=== PATIENT | male | born 1930 | race Caucasian/White ===

== ENCOUNTER 2018-07-08 09:24 | Inpatient (IN) | payer MEDICARE, OTHER ==
[2018-07-10] MEDS ORDERED: Gabapentin 100 MG Cap PO PRN (16:20)
[2018-07-10] MEDS: Acetaminophen 325 MG Tab PO SCH ×2 (16:48→21:49)
--- NOTE | 2018-07-10 18:15 | PCM.HP ---
H&P History of Present Illness - General Date of Service: 07/10/18 Admit Problem/Dx: Admission Diagnosis/Problem Admission Diagnosis/Problem Weakness Source of Information: Patient, Family History Limitations: Reports: No Limitations - History of Present Illness Initial Comments - Free Text/Narative: Mr. Rosales is an 88 yo male with PMH of aortic stenosis, CKD, atrial fibrillation , dyspnea on exertion, and hypertension who is admitted to swing bed for short term rehabilitation following a right total shoulder replacement. He underwent the surgery in [place] on 07/05. The surgery was uncomplicated and he did well postoperatively. He has chronic shortness of breath on exertion. However, he had noted this was slightly worse after surgery; therefore, an extensive evaluation was obtained. It seems the shortness of breath is likely secondary to slight fluid overload as other testing did not give alternative explanations and his symptoms improved with a dose of lasix. He is s/p left AKA. Therefore, it was recommended he do rehab in a facility for a short time before returning home. He and his family note that he has already been making great strides in his ADL' s just in the last 3-4 days even. He has not had any pain and is only on tylenol for his shoulder. He does have some swelling in the right arm that has been persistent since surgery but denies any redness or pain. No problems with ROM or sensation of the fingers. His appetite is good and he denies any nausea or vomiting. He is having regular bowel movements. He states his shortness of breath remains at baseline. He has not had any chest pain, leg swelling, cough, or fever. He denies any questions or concerns. - Related Data Allergies/Adverse Reactions: Allergies Allergy/AdvReac Type Severity Reaction Status Date / Time codeine Allergy Other Verified 07/08/18 09:07 oxycodone Allergy Other Verified 07/08/18 09:07 Home Medications: Home Meds Acetaminophen 650 mg PO Q6H 07/08/18 [History] Aspirin [Aspirin EC] 325 mg PO DAILY 07/08/18 [History] Labetalol [Normodyne] 100 mg PO BID 07/08/18 [History] Losartan [Cozaar] 50 mg PO DAILY 07/08/18 [History] Sennosides/Docusate Sodium [Senna-Docusate Sodium Tablet] 1 each PO BID [History] amLODIPine Besylate [Amlodipine Besylate] 10 mg PO DAILY 07/08/18 [History] hydroCHLOROthiazide [Hydrochlorothiazide] 25 mg PO DAILY 07/08/18 [History] Cyanocobalamin (Vitamin B-12) [B-12] 1,000 mcg PO DAILY 07/10/18 [History] Ferrous Sulfate 325 mg PO TID 07/10/18 [History] Folic Acid 1 mg PO DAILY 07/10/18 [History] Gabapentin [Neurontin] 100 mg PO BID PRN 07/10/18 [History] Magnesium Amino Acid Chelate [Magnesium] 100 mg PO DAILY 07/10/18 [History] Multivitamin [Multi-Vitamin Daily] 1 each PO DAILY 07/10/18 [History] Past Medical History HEENT History: Reports: Cataract, Other (See Below) Other HEENT History: coroneal scar; blurred vision Cardiovascular History: Reports: Afib, Hypertension, Other (See Below) Other Cardiovascular History: aortic valve stenosis Respiratory History: Reports: Other (See Below) Other Respiratory History: SOB on exertion Gastrointestinal History: Reports: None Genitourinary History: Reports: Other (See Below) Other Genitourinary History: kidney disease Musculoskeletal History: Reports: Amputation, Other (See Below) Other Musculoskeletal History: tramatic left above the knee amputation; trigger finger; cervical spondylosis Neurological History: Reports: None Psychiatric History: Reports: None Endocrine/Metabolic History: Reports: None Hematologic History: Reports: Anemia, Other (See Below) Other Hematologic History: agranulocytosis Immunologic History: Reports: None Oncologic (Cancer) History: Reports: Other (See Below) (skin) Dermatologic History: Reports: Other (See Below) Other Dermatologic History: actinic keratosis - Infectious Disease History Infectious Disease History: Reports: Other (See Below) Other Infectious Disease History: hx of coccidiodomycosis - Past Surgical History HEENT Surgical History: Reports: Cataract Surgery, Eye Surgery Respiratory Surgical History: Reports: Other (See Below) Other Respiratory Surgeries/Procedures: 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 GI Surgical History: Reports: Appendectomy, Hernia Repair/Other Musculoskeletal Surgical History: Reports: Carpal Tunnel, ORIF, Shoulder Replacement Social & Family History - Family History Oncologic: Reports: Other (See Below) (unknown primary) - Tobacco Use Smoking Status *Q: Former Smoker Packs/Tins Daily: 1 Used Tobacco, but Quit: Yes Month/Year Tobacco Last Used: 1969 Second Hand Smoke Exposure: No - Caffeine Use Caffeine Use: Reports: Coffee, Soda - Alcohol Use Days Per Week of Alcohol Use: 3 Number of Drinks Per Day: 2 Total Drinks Per Week: 6 - Recreational Drug Use Recreational Drug Use: No - Living Situation & Occupation Living situation: Reports: with Significant Other Occupation: Retired (army , retired salesman) H&P Review of Systems - Review of Systems: Review Of Systems: See Below General: Reports: No Symptoms HEENT: Reports: No Symptoms Pulmonary: Reports: No Symptoms Cardiovascular: Reports: No Symptoms Gastrointestinal: Reports: No Symptoms Genitourinary: Reports: No Symptoms Musculoskeletal: Reports: No Symptoms Skin: Reports: No Symptoms Psychiatric: Reports: No Symptoms Exam - Exam Exam: See Below - Vital Signs Vital Signs: Last Vital Signs Temp 36.6 C 07/10/18 14:04 Pulse 91 07/10/18 14:04 Resp 16 07/10/18 14:04 BP 152/76 H 07/10/18 14:04 Pulse Ox 98 07/10/18 14:04 Weight: 72.745 kg - Exam General: Alert, Oriented, Cooperative HEENT: Conjunctiva Clear, Posterior Pharynx Clear, Pupils Equal, Pupils Reactive Neck: Supple, Trachea Midline. No: Lymphadenopathy, Thyromegaly Lungs: Clear to Auscultation, Normal Respiratory Effort Cardiovascular: Regular Rate, Regular Rhythm, Normal S1, Normal S2 GI/Abdominal Exam: Normal Bowel Sounds, Soft, Non-Tender, No Distention Extremities: Non-Tender, No Pedal Edema, Normal Capillary Refill, Other ( generalized pitting edema to the right upper extremity that is nontender to palpation; no erythema; ROM and sensation of the fingers and arm normal) Peripheral Pulses: 2+: Radial (L), Radial (R) Skin: Warm, Dry, Intact *Q Meaningful Use (ADM) - VTE *Q VTE Anticoagulation Contraindications: Med/TX Not Indicated/Need - Problem List (1) Status post total replacement of right shoulder SNOMED Code(s): 246490072, 516991828 ICD Code: Z96.611 - PRESENCE OF RIGHT ARTIFICIAL SHOULDER JOINT Status: Acute Current Visit: Yes (2) S/P AKA (above knee amputation) SNOMED Code(s): 121499327, 95438804, 884320878 ICD Code: Z89.619 - ACQUIRED ABSENCE OF UNSPECIFIED LEG ABOVE KNEE Status: Chronic Current Visit: Yes Qualifiers: Laterality: left Qualified Code(s): Z89.612 - Acquired absence of left leg above knee (3) Dyspnea on exertion SNOMED Code(s): 64972432 ICD Code: R06.09 - OTHER FORMS OF DYSPNEA Status: Chronic Current Visit: Yes (4) Phantom limb pain SNOMED Code(s): 9451473053008 ICD Code: G54.6 - PHANTOM LIMB SYNDROME WITH PAIN Status: Chronic Current Visit: Yes (5) Hypertension SNOMED Code(s): 09551427 ICD Code: I10 - ESSENTIAL (PRIMARY) HYPERTENSION Status: Chronic Current Visit: Yes Qualifiers: Hypertension type: essential hypertension Qualified Code(s): I10 - Essential (primary) hypertension (6) CKD (chronic kidney disease) SNOMED Code(s): 357573911 ICD Code: N18.9 - CHRONIC KIDNEY DISEASE, UNSPECIFIED Status: Chronic Current Visit: Yes Qualifiers: Chronic kidney disease stage: stage 3 (moderate) Qualified Code(s): N18.3 - Chronic kidney disease, stage 3 (moderate) (7) Aortic stenosis SNOMED Code(s): 65625450 ICD Code: I35.0 - NONRHEUMATIC AORTIC (VALVE) STENOSIS Status: Chronic Current Visit: Yes Qualifiers: Cardiac valve disease etiology: nonrheumatic Qualified Code(s): I35.0 - Nonrheumatic aortic (valve) stenosis (8) Atrial fibrillation SNOMED Code(s): 99859021 ICD Code: I48.91 - UNSPECIFIED ATRIAL FIBRILLATION Status: Chronic Current Visit: Yes Qualifiers: Atrial fibrillation type: paroxysmal Qualified Code(s): I48.0 - Paroxysmal atrial fibrillation Problem List Initiated/Reviewed/Updated: Yes Orders Last 24hrs: Active Orders 24 hr Category Date Time Status Admission Status [Patient Status] [ADT] Routine ADT 07/10/18 13:00 Active Notify Provider Vital Signs [RC] 06,18 Care 07/10/18 16:19 Active Oxygen Therapy [RC] .PRN Care 07/10/18 16:19 Active Up With Assistance [RC] 08,20 Care 07/10/18 16:19 Active Vital Signs [RC] 06,18 Care 07/10/18 16:19 Active OT Evaluation and Treatment [CONS] Routine Cons 07/10/18 13:00 Active PT Evaluation and Treatment [CONS] Routine Cons 07/10/18 13:00 Active Regular Diet [DIET] Diet 07/10/18 Lunch Active Acetaminophen [Tylenol] Med 07/10/18 16:30 Active 650 mg PO Q6H Aspirin [Ecotrin] Med 07/11/18 08:00 Active 325 mg PO DAILY Cyanocobalamin (Vitamin B12) [Vitamin B12] Med 07/11/18 08:00 Active 1,000 mcg PO DAILY Docusate Sodium/Sennosides [Senna Plus] Med 07/10/18 20:00 Active 1 tab PO BID Ferrous Sulfate Med 07/10/18 20:00 Active 325 mg PO TID Folic Acid Med 07/11/18 08:00 Active 1 mg PO DAILY Gabapentin [Neurontin] Med 07/10/18 16:20 Active 100 mg PO BID PRN Labetalol [Normodyne] Med 07/10/18 20:00 Active 100 mg PO BID Losartan [Cozaar] Med 07/11/18 08:00 Active 50 mg PO DAILY Magnesium Oxide Med 07/11/18 08:00 Active 400 mg PO DAILY Multivitamins w-Iron/Ca/FA/Min [Thera M Plus] Med 07/11/18 08:00 Active 1 tab PO DAILY amLODIPine [Norvasc] Med 07/11/18 08:00 Active 10 mg PO DAILY hydroCHLOROthiazide Med 07/11/18 08:00 Active 25 mg PO DAILY Anticoagulation Contraindications VTE [AST] Routine Oth 07/10/18 16:19 Ordered Resuscitation Status Routine Resus Stat 07/10/18 16:19 Ordered Medication Orders Acetaminophen (Tylenol) 650 mg PO Q6H [facility] Last Admin: 07/10/18 16:48 Dose: 650 mg Amlodipine Besylate (Norvasc) 10 mg PO DAILY [facility] Aspirin (Ecotrin) 325 mg PO DAILY [facility] Cyanocobalamin (Vitamin B12) 1,000 mcg PO DAILY [facility] Ferrous Sulfate (Ferrous Sulfate) 325 mg PO TID [facility] Folic Acid (Folic Acid) 1 mg PO DAILY [facility] Gabapentin (Neurontin) 100 mg PO BID PRN PRN Reason: Phantom limb pain Hydrochlorothiazide (Hydrochlorothiazide) 25 mg PO DAILY [facility] Labetalol HCl (Normodyne) 100 mg PO BID [facility] Losartan Potassium (Cozaar) 50 mg PO DAILY [facility] Magnesium Oxide (Magnesium Oxide) 400 mg PO DAILY [facility] Multivitamins/Minerals (Thera M Plus) 1 tab PO DAILY [facility] Senna/Docusate Sodium (Senna Plus) 1 tab PO BID [facility] Assessment/Plan Comment:: #1 s/p right total shoulder replacement #2 s/p left AKA - Patient is doing extremely well postoperatively. - PT/OT consults for strengthening. - Anticipate his swing bed stay will be very short but this will be guided by PT and OT recommendations. - Continue tylenol for pain and ASA for VTE prophylaxis. 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 He had a good response to a single dose of lasix and has done well since. - Do recommend further work-up with PFT's and possibly stress testing as an outpatient given chronic nature of symptoms. #4 Phantom limb pain - Continue gabapentin PRN. #5 Hypertension #6 CKD #7 Aortic stenosis - Continue home medications. #8 Atrial fibrillation - He has declined anticoagulation in the past. - Immediately postop is not the time to start this. - Will defer to his [facility] providers regarding this. Patient is admitted to swing bed for rehabilitation - anticipate he will only be admitted for up to 1-2 weeks. Continue medications as per his hospital d/c list. ASA for VTE prophylaxis as per current orthopedic guidelines; nothing else needed for VTE prophylaxis. Code status is Full - discussed on admission.
[2018-07-10] MEDS: Ferrous Sulfate 325 MG Tab PO SCH (20:38)
[2018-07-10] MEDS: Labetalol 100 MG Tab PO SCH (20:41)
[2018-07-10] MEDS: amLODIPine 10 MG Tab PO SCH (21:48)
[2018-07-11] MEDS: Acetaminophen 325 MG Tab PO SCH ×4 (05:11→23:49)
--- OUTSIDE RECORDS SUMMARY | 2018-07-11 07:42 | XMSREPORT | Summary of Care ---
:1930 Author Organization [facility] Address [address] [place] [address] Care Team Providers Name Role Phone Provider, No Attributed RESOURCE Attributed Provider Unavailable Jaron Silva Primary Care Provider Reason for Visit Auth/Cert (Routine) Status Reason Specialty Diagnoses / Procedures Referred By Contact Referred To Contact Diagnoses Primary osteoarthritis, unspecified shoulder Mateo Cartwright, Procedures ARTHROPLASTY GLENOHUMERAL JOINT TOTAL SHLDR [address] [place] [address] Encounter Details Date Type Department Care Team Description 07/05/2018 - Hospital Encounter [facility], Status post total 07/10/2018 [facility] MS4C MD Mateo shoulder [facility] [address] replacement, [place] [address] [place], [place] [phone] [id number] [phone] Allergies Active Allergy Reactions Severity Noted Date Comments Codeine Nausea and Vomiting 06/27/2018 Oxycodone Nausea and Vomiting 06/27/2018 Analgesic Nausea and Vomiting 07/11/2014 Allergic to all pain killers documented as of this encounter (statuses as of 07/10/2018) Medications Medication Sig Dispensed Refills Start End Status Date Date acetaminophen (TYLENOL) Take 2 tablets 112 tablet 0 07/11/19 Active 325 mg (650 mg) by 19 019 tabletIndications: mouth Every 6 Healthcare maintenance hours for 14 days aspirin 325 MG enteric Take 1 tablet 30 tablet 0 07/11/19 Active coated (325 mg) by 19 tabletIndications: mouth 1 time Healthcare maintenance per day gabapentin (NEURONTIN) Take 1 capsule 60 capsule 2 07/11/19 Active 100 mg (100 mg) by 19 019 capsuleIndications: mouth 2 times a Phantom limb pain (HCC) day as needed for other (Specify) (phantom limb) niacin SR (NIASPAN) 500 Take 1 tablet 0 07/11/19 Active MG tabletIndications: (500 mg) by 19 Healthcare maintenance mouth 1 time per day at noon HOLD UNTIL SURGICAL WOUND HEALS. senna-docusate sodium Take 1 tablet 0 07/11/19 Active (SENOKOT-S;PERICOLACE) by mouth 2 19 8.6-50 MG times a day tabletIndications: Healthcare maintenance Coenzyme Q10 (CO Q 10) Take 1 tablet 0 07/11/19 Active 10 MG CAPSIndications: by mouth 1 time 19 Healthcare maintenance per day HOLD UNTIL SURGICAL WOUND HEALS. Nattokinase 100 MG Take 250 mg by 0 07/11/19 Active CAPSIndications: mouth 1 time 19 Healthcare maintenance per day HOLD UNTIL SURGICAL WOUND HEALS. turmeric 500 mg Take 0.5 0 07/11/19 Active tabletIndications: tablets (250 19 Healthcare maintenance mg) by mouth 1 time per day HOLD UNTIL SURGICAL WOUND HEALS. vitamin E 100 units Take 1 capsule 30 capsule 0 07/11/19 Active capsuleIndications: (100 Units) by 19 Healthcare maintenance mouth 1 time per day HOLD UNTIL SURGICAL WOUND HEALS. losartan 50 mg tablet Take by mouth 1 0 07/11/19 Active time per day 19 labetalol (NORMODYNE, Take 0.5 0 07/11/19 Active TRANDATE) 200 mg tablet tablets (100 19 mg) by mouth 2 times a day amLODIPine (NORVASC) 10 Take 1 tablet 0 07/11/19 Active mg tablet (10 mg) by 19 mouth 1 time per day hydroCHLOROthiazide 25 Take by mouth 1 0 20 Active mg tablet time per day 19 Ferrous Sulfate (IRON) Take 1 tablet 30 tablet 0 07/11/19 Active 325 (65 Fe) MG tablet (325 mg) by 19 mouth 3 times a day folic acid 1 mg tablet Take 1 tablet 90 tablet 3 07/11/19 Active (1 mg) by mouth 19 1 time per day magnesium 100 MG CAPS Take 1 capsule 0 07/11/19 Active by mouth 1 time 19 per day B Complex Vitamins (B Take 1 tablet 0 05/06/20 Active COMPLEX-VITAMIN B-12) by mouth 1 time 19 TABSIndications: per day Healthcare maintenance Multiple Take 1 tablet 30 tablet 0 07/11/19 Active Vitamins-Minerals (1 each) by 19 (MULTIVITAL) mouth 1 time tabletIndications: per day Healthcare maintenance hydrochlorothiazide 25 Take by mouth 0 Discontinued mg tablet 1 time per day. 019 amLODIPine (NORVASC) 10 Take 10 mg by 0 Discontinued mg tablet mouth 1 time 019 per day. losartan (COZAAR) 50 mg Take by mouth 0 Discontinued tablet 1 time per day. 019 B Complex Vitamins (B Take 1 tablet 0 Discontinued COMPLEX-VITAMIN B-12) by mouth 1 time 019 TABS per day Coenzyme Q10 (CO Q 10) Take 1 tablet 0 Discontinued 10 MG CAPS by mouth 1 time 019 per day niacin 100 mg tablet Take 100 mg by 0 Discontinued mouth 1 time 019 per day pyridoxine (VITAMIN Take 100 mg by 0 Discontinued B-6) 100 MG tablet mouth 1 time 019 per day. UNKNOWN NDC mattokanize 0 Discontinued 019 metoprolol succinate Take 100 mg by 0 Discontinued (TOPROL XL) 100 mg SR mouth 1 time 019 tablet (24 hr) per day magnesium 100 MG CAPS Take 1 capsule 0 Discontinued by mouth 1 time 019 per day labetalol (NORMODYNE, Take 100 mg by 0 Discontinued TRANDATE) 200 mg tablet mouth 2 times a 019 day ibuprofen Take 600 mg by 0 Discontinued (ADVIL;MOTRIN-IB) 200 mouth Every 4 019 mg tablet hours as needed vitamin E 100 units Take 1 capsule 0 Discontinued capsule by mouth 1 time 019 per day NATTOKINASE PO Take 250 mg by 0 Discontinued mouth 1 time 019 per day Ferrous Sulfate (IRON) Take 325 mg by 0 Discontinued 325 (65 Fe) MG tablet mouth 3 times a 019 day Multiple Take 1 tablet 0 Discontinued Vitamins-Minerals by mouth 1 time 019 (MULTIVITAL) tablet per day diclofenac (VOLTAREN) Apply 4 g 0 Discontinued 1% gel topically 4 019 times a day folic acid 1 mg tablet Take 1 mg by 0 Discontinued mouth 1 time 019 per day niacin SR (NIASPAN) 500 Take 500 mg by 0 Discontinued MG tablet mouth 1 time 019 per day at noon turmeric 500 mg tablet Take 250 mg by 0 Discontinued mouth 1 time 019 per day documented as of this encounter (statuses as of 07/10/2018) Active Problems Problem Noted Date Acute blood loss anemia 07/10/2018 Phantom limb pain 07/10/2018 Shortness of breath 07/10/2018 Hyperkalemia 07/10/2018 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 documented as of this encounter Last Filed Vital Signs Vital Sign Reading Time Taken Blood Pressure 117/85 07/10/2018 8:42 AM CDT Pulse 104 07/10/2018 8:42 AM CDT Temperature 36.8 C (98.2 F) 07/10/2018 8:42 AM CDT Respiratory Rate 16 07/10/2018 8:42 AM CDT Oxygen Saturation 97% 07/10/2018 8:42 AM CDT Inhaled Oxygen Concentration - - Weight 73 kg (161 lb) 07/09/2018 10:14 AM CDT Height 162.6 cm (5' 4") 07/05/2018 7:15 AM CDT Body Mass Index 27.64 07/09/2018 10:14 AM CDT documented in this encounter Functional Status Functional Status Response Date of Assessment Is the person deaf or does he/she have serious difficulty No 06/27/2018 hearing? Is this person blind or does he/she have difficulty No 06/27/2018 seeing even when wearing glasses? Do you have difficulty with walking, balance, climbing No 06/27/2018 stairs, or had a fall in the last 3 months? Does the patient have difficulty dressing or bathing? No 06/27/2018 Because of a physical, mental, or emotional condition; No 06/27/2018 does this person have difficulty doing errands alone such as visiting a doctor's office or shopping? Cognitive Status Response Date of Assessment Because of a physical, mental, or emotional condition; No 06/27/2018 does this person have serious difficulty concentrating, remembering, or making decisions? documented as of this encounter Discharge Instructions Domingo Sanchez RN - 07/10/2018Reviewed "Orthopedic Discharge Education Guidelines" and "Pain management after You are Discharged" documents with patient. Paper copies were attached to AVS for patient to use as a reference for follow up questions. Preventing Blood Clots (Deep Vein Thrombosis) In the days and weeks after surgery, you have a higher chance of developing a deep vein thrombosis (DVT). This is a condition in which a blood clot or thrombus develops in a deep vein. They are most common in the leg. But, a DVT may develop in an arm, or another deep vein in the body. A piece of the clot, called an embolus, can separate from the vein and travel to the lungs. A blood clot in the lungsis called a pulmonary embolus (PE). This can cut off the flow of blood. It is a medical emergency and may cause . Deep vein thrombosis can occur even after you go home. Follow all instructions from your health careprovider. The following are some general guidelines about DVT prevention: Anticoagulant medication. If an anticoagulant was prescribed, make sure you follow all directionsabout taking it. Be sure you know what foods and medicines may interact. Also, ask your health care provider what to do if you forget to take a dose. Compression stockings. Your health care provider will tell you how often to wear and remove the stockings. Follow all instructions closely. Each time you remove your stockings, check your legs and feet for reddened areas or sores. If you see any changes, call your health care provider right away. Returning to activity. Follow all instructions about returning to activities. Be as active as youcan. This improves blood flow and helps prevent a clot from forming. When in bed or in a chair, continue with the ankle exercises you did in the hospital. Elevate your extremity above the level of yourheart to help prevent swelling. documented in this encounter Progress Notes Merced Hinojosa MD - 07/09/2018 10:38 AM CDT DAILY PROGRESS NOTE SUMMARY 88-year-old gentleman admitted to the hospital for right total shoulder arthroplasty. He underwent the procedure on 07/05. Internal medicine is following the patient for medical management. ASSESSMENT & PLAN #. Right total shoulder arthroplasty. Pain control, bowel regimen, DVT prophylaxis per orthopedics. - On scheduled Tylenol for pain control. Per family, patient is sensitive to tramadol and oxycodone. He is unable to use Celebrex because of his chronic kidney disease. On MiraLAX and senna. On aspirin for DVT prophylaxis. #. Shortness of breath. Likely from fluid overload. Baseline weight (with prosthesis) 160 lb. current weight 161 lb. - Patient reports shortness of breath is better this morning. No hypoxia. SBP 150-160. Patient mildly tachycardic. - Administer another dose of IV Bumex. Check renal panel in a.m. - Hydrochlorothiazide and/or Bumex decision pending shortness of breath, dizziness, blood pressure, orthostatic blood pressure, and renal panel in a.m. - Shortness of breath workup done on 07/08. Please refer to note from 07/08 for further details. #. Hypertension. On Norvasc and labetalol. HCTZ and losartan on hold. #. History of paroxysmal atrial fibrillation. On labetalol. Not on anticoagulation or aspirin. Follow-up with PCP. #. Staged 3 chronic kidney disease. Baseline creatinine appears to be around 1.6. #. Moderate aortic stenosis. #. History of left AKA. #. Phantom limb pain. Started on Neurontin. Appears to be helping. Patient would like to keep this as needed. #. Anemia. Hemoglobin stable around 9. Disposition: To TCU on Tuesday. >35 min spent on patient care. >50% of time spent on patient/family counseling and coordination of care. This note was created, at least in part, with the use of [employer] Dictation System. Inadvertenttypographical errors, due to software recognition problems, may still exist. SUBJECTIVE/ROS No acute events overnight. No new complaints this a.m. Patient is sitting in chair and appears comfortable. No chest pain. Shortness of breath improving. No abdomen pain. No specific complaints. Medications bumetanide (BUMEX) injection solution 1 mg 1 mg IV Daily 1 mg at 07/09/18 1006 gabapentin (NEURONTIN) capsule 100 mg 100 mg Oral 2 times a day 100 mg at 07/09/18 1013 levalbuterol (XOPENEX) 0.63 MG/3ML inhalation soln 0.63 mg 0.63 mg Nebulization Every 4 hours prn amLODIPine (NORVASC) tablet 10 mg 10 mg Oral daily 10 mg at 07/08/182013 labetalol (NORMODYNE, TRANDATE) tablet 100 mg 100 mg Oral 2 times a day 100 mg at 07/09/18 1014 aspirin (ECOTRIN) enteric coated tablet 325 mg 325 mg Oral Daily 325 mg at 07/09/18 1014 sodium chloride 0.9% flush (adult) 10 mL 10 mL IV 2 times a day and prn 10 mL at 07/09/18 1012 acetaminophen (TYLENOL) tablet 650 mg 650 mg Oral Every 6 hours 650 mg at 07/09/18 0608 senna-docusate sodium (SENOKOT-S;PERICOLACE) tablet 1 tablet 1 tablet Oral 2 times a day 1 tablet at 07/07/182002 polyethylene glycol (MIRALAX) packet 1 packet 1 packet Oral Daily 1 packet at 07/07/18 0955 magnesium hydroxide (MILK OF MAGNESIA) oral suspension 30 mL 30 mL Oral 2 times a day prn bisacodyl (DULCOLAX) enteric coated tablet 5 mg 5 mg Oral 2 times a day prn 5 mg at 07/07/182002 bisacodyl (DULCOLAX) suppository 10 mg 10 mg Rectal 1 time a day prn ondansetron (ZOFRAN) injection solution 4 mg 4 mg IV Every 4 hours prn 4 mg at 07/06/18 0926 benzocaine-menthol (CEPACOL w/ BENZOCAINE) lozenge 1 lozenge 1 lozenge Mouth/Throat Every 4 hours prn niacin (SLO-NIACIN) CR tablet 500 mg 500 mg Oral Daily at noon 500 mg at 1315 OBJECTIVE Current Vital Signs Temp: 98.1 F (36.7 C) BP: 155/80 Pulse: 82 O2 Device: Room Air O2 Flow Rate (L/min): 2 l/min Resp: 16 Pain Ratin (out of 10) Weight: 71.8 kg (158 lb 4.6 oz) SpO2: 98 % Vitals Min/Max Last 24 Hours Vital Signs Min/Max (last 24 hours) Flowsheet Row Name Min Max Temp 97.9 F (36.6 C) 98.3 F (36.8 C) BP: Systolic 140 163 BP: Diastolic 80 88 Pulse 81 92 Resp 16 18 SpO2 97 % 98 % MAP (mm Hg) 104 mm Hg 125 mm Hg Intake and Output Last 24 Hours 07/08 0700 - 07/09 0659 In: 400 Out: 1425 Lines and Drains Patient Lines/Drains/Airways Status Active Lines Name: Placement date: Placement time: Site: Days: Peripheral IV 07/05/18 Forearm Left 07/05/18 075 Forearm 4 Incision 07/05/18 Right Shoulder Incision 07/05/18 Shoulder 4 Physical Exam General Appearance: Well nourished, well hydrated, does not appear to be in acute distress Lungs: No use of accessory muscles of respiration, CTA shiva Heart: normal S1 S2, no pedal edema. Abdomen: soft, normal BS, non tender Neurological: alert, answering questions appropriately. Diagnostics and Labs Labs (Last day) 07/09/18542 - 07/09/18542 CBC 07/09/18542 CBC WBC 4.0-11.0 (K/uL) 5.4 RBC 4.40-5.80 (M/uL) 2.98 Hemoglobin 13.5-17.5 (g/dL) 9.1 Hematocrit 40.0-50.0 (%) 27.9 MCV 80.0-98.0 (fL) 93.6 MCH 25.5-34.0 (pg) 30.5 MCHC 31.5-36.5 (g/dL) 32.6 RDW-CV 11.5-15.5 (%) 12.9 RDW-SD 35.5-50.0 (fl) 42.8 Platelet Count 140-400 (K/uL) 180 MPV 8.5-12.0 (fL) 10.3 07/09/1843 - 07/09/18542 CHEMISTRY 07/09/18542 CHEMISTRY Glucose 70-100 (mg/dL) 93 Sodium 135-145 (meq/L) 140 Potassium 3.5-5.3 (meq/L) 4.6 Chloride 99-110 (meq/L) 106 CO2 20-29 (meq/L) 25 Anion Gap with K 6-20 (meq/L) 14 BUN 6-22 (mg/dL) 29 Creatinine 0.80-1.30 (mg/dL) 1.45 BUN/Creatinine Ratio 10.0-25.0 20.0 Calcium 8.5-10.5 (mg/dL) 9.0 eGFR >=60 (mL/min/1.73m2) 56 eGFR Non- >=60 (mL/min/1.73m2) 46 07/09/18 0543 - 07/09/18 0543 OTHER 07/09/1843 OTHER Age (Years) 88 Jesús Rowe PA - 07/09/2018 8:10 AM CDT Orthopedic Daily Progress note: UE: S: 4 Days Post-Op, Procedure(s): RIGHT TOTAL SHOULDER ARTHROPLASTY O: A/O, Pain controlled, Incision C/D/I, Denies CP, SOB, F/C, N/V Radial, ulnar and median nerve motor and sensory function functional. Work-up yesterday for Cardio-Pulmonary cause of SOB, elevated labs per [facility], please see notes. Patient doing well this AM. No acute events overnight. Current Vital Signs Temp: 98.1 F (36.7 C) BP: 155/80 Pulse: 82 O2 Device: Room Air O2 Flow Rate (L/min): 2 l/min Resp: 16 Pain Ratin (out of 10) Weight: 71.8 kg (158 lb 4.6 oz) SpO2: 98 % Pain Ratin Pain Location: Shoulder Specify: Right Pain character: Aches Intake/Output Summary (Last 24 hours) at 07/09/2018 0810 Last data filed at 07/09/2018 0607 Gross per 24 hour Intake 400 ml Output 1100 ml Net -700 ml Lab Results Component Value Date HEMOGLOBIN 9.1 (L) 07/09/2018 Lab Results Component Value Date NA 140 07/09/2018 No results found for: INR, PT Lab review: labs were reviewed and discussed with patient by INT [facility] Assessment/Plan: 4 Days Post-Op, Procedure(s): RIGHT TOTAL SHOULDER ARTHROPLASTY 1. Analgesia: Tylenol 2. Disposition/Planning: D/C tomorrow if cleared medically. LAYLA Brantley, SUPRIYAC Merced Gil MD - 07/08/2018 6:23 PM CDT DAILY PROGRESS NOTE SUMMARY 88-year-old gentleman admitted to the hospital for right total shoulder arthroplasty. He underwent the procedure on 07/05. Internal medicine is following the patient for medical management. ASSESSMENT & PLAN #. Right total shoulder arthroplasty. Pain control, bowel regimen, DVT prophylaxis per orthopedics. - On scheduled Tylenol for pain control. Per family, patient is sensitive to tramadol and oxycodone. He is unable to use Celebrex because of his chronic kidney disease. On MiraLAX and senna. On aspirin for DVT prophylaxis. #. Shortness of breath. - Likely from fluid overload. No pedal edema. BNP mildly elevated. Chest x- ray no fluid overload. Had good response to IV Lasix. Creatinine stable today. Continue diuresis. - EKG no acute findings. Troponin mildly elevated, likely non-ST elevation DC type II. Echo shows preserved EF and no regional wall motion abnormalities of left ventricle. - No symptoms of pneumonia. - Patient is an ex-smoker. No wheeze on exam. Use as needed and neb treatment. - Right upper extent ultrasound shows an old clot. Ventilation/perfusion scan shows right lower lobe perfusion defect. However, patient had lobectomy in the area in 2003. - Discussed pros and cons of anticoagulation vs. CT PE protocol with family. At this time will continue treatment with diuresis and monitor without anticoagulation or CT PE. Further testing if patient's breathing got worse. #. Hypertension. On Norvasc and labetalol. HCTZ and losartan on hold. #. History of paroxysmal atrial fibrillation. On labetalol. Not on anticoagulation. #. Staged 3 chronic kidney disease. Baseline creatinine appears to be around 1.6. #. Moderate aortic stenosis. #. History of left AKA. #. Phantom limb pain. Flexeril is not helping. Patient has been using ibuprofen at home, despite contraindication from his chronic kidney disease. Will try Neurontin. #. Anemia. Hemoglobin stable around 9. Disposition: TCU unable to accept the patient this afternoon. They will accept him on Tuesday. >35 min spent on patient care. >50% of time spent on patient/family counseling and coordination of care. This note was created, at least in part, with the use of [employer] Dictation System. Inadvertenttypographical errors, due to software recognition problems, may still exist. SUBJECTIVE/ROS Patient complained of shortness of breath with activity last evening. He received a dose of Bumex.He had good urine output. He continues to complain of shortness of breath with activity this morning. No chest pain. No abdomen pain. Taking good oral diet. No pedal edema. No hypoxia. Medications [START ON 07/09/2018] bumetanide (BUMEX) injection solution 1 mg 1 mg IV Daily levalbuterol (XOPENEX) 0.63 MG/3ML inhalation soln 0.63 mg 0.63 mg Nebulization Every 4 hours prn cyclobenzaprine (FLEXERIL) tablet 2.5 mg 2.5 mg Oral 3 times a day prn 2.5 mg at 07/07/182125 amLODIPine (NORVASC) tablet 10 mg 10 mg Oral daily 10 mg at 07/07/181999 labetalol (NORMODYNE, TRANDATE) tablet 100 mg 100 mg Oral 2 times a day 100 mg at 07/08/18 0825 aspirin (ECOTRIN) enteric coated tablet 325 mg 325 mg Oral Daily 325 mg at 07/08/18 0825 sodium chloride 0.9% flush (adult) 10 mL 10 mL IV 2 times a day and prn 10 mL at 07/08/18 0901 acetaminophen (TYLENOL) tablet 650 mg 650 mg Oral Every 6 hours 650 mg at 07/08/18 1742 senna-docusate sodium (SENOKOT-S;PERICOLACE) tablet 1 tablet 1 tablet Oral 2 times a day 1 tablet at 07/07/182002 polyethylene glycol (MIRALAX) packet 1 packet 1 packet Oral Daily 1 packet at 07/07/18 0955 magnesium hydroxide (MILK OF MAGNESIA) oral suspension 30 mL 30 mL Oral 2 times a day prn bisacodyl (DULCOLAX) enteric coated tablet 5 mg 5 mg Oral 2 times a day prn 5 mg at 07/07/182002 bisacodyl (DULCOLAX) suppository 10 mg 10 mg Rectal 1 time a day prn ondansetron (ZOFRAN) injection solution 4 mg 4 mg IV Every 4 hours prn 4 mg at 07/06/18 0926 benzocaine-menthol (CEPACOL w/ BENZOCAINE) lozenge 1 lozenge 1 lozenge Mouth/Throat Every 4 hours prn niacin (SLO-NIACIN) CR tablet 500 mg 500 mg Oral Daily at noon 500 mg at 1315 OBJECTIVE Current Vital Signs Temp: 98.4 F (36.9 C) BP: 119/71 Pulse: 107 O2 Device: Room Air O2 Flow Rate (L/min): 2 l/min Resp: 16 Pain Ratin (out of 10) Weight: 71.8 kg (158 lb 4.6 oz) SpO2: 98 % Vitals Min/Max Last 24 Hours Vital Signs Min/Max (last 24 hours) Flowsheet Row Name Min Max Temp 97.9 F (36.6 C) 98.7 F (37.1 C) BP: Systolic 119 153 BP: Diastolic 71 88 Pulse 83 107 Resp 16 16 SpO2 94 % 98 % MAP (mm Hg) 98 mm Hg 116 mm Hg Intake and Output Last 24 Hours 07/07 0700 - 07/08 0659 In: 1000 Out: 2525 Lines and Drains Patient Lines/Drains/Airways Status Active Lines Name: Placement date: Placement time: Site: Days: Peripheral IV 07/05/18 Forearm Left 07/05/18 0753 Forearm 3 Incision 07/05/18 Right Shoulder Incision 07/05/18 Shoulder 3 Physical Exam General Appearance: Well nourished, well hydrated, lying in bed, does not appear to be in acute distress Lungs: No use of accessory muscles of respiration, CTA shiva Heart: normal S1 S2, no pedal edema. Abdomen: soft, normal BS, non tender Neurological: alert, answering questions appropriately. Diagnostics and Labs Labs (Last day) 07/08/18530 - 07/07/18 190 CARDIAC MARKERS 05/04/19 0531 [id number] CARDIAC MARKERS Troponin I 0.000-0.028 (ng/mL) 0.136 0.145 BNP 0-100 (pg/mL) 373 07/07/181899 - 07/07/181899 CBC 07/07/181899 CBC WBC 4.0-11.0 (K/uL) 7.7 RBC 4.40-5.80 (M/uL) 2.99 Hemoglobin 13.5-17.5 (g/dL) 9.5 Hematocrit 40.0-50.0 (%) 27.8 MCV 80.0-98.0 (fL) 93.0 MCH 25.5-34.0 (pg) 31.8 MCHC 31.5-36.5 (g/dL) 34.2 RDW-CV 11.5-15.5 (%) 13.1 RDW-SD 35.5-50.0 (fl) 42.6 Platelet Count 140-400 (K/uL) 156 MPV 8.5-12.0 (fL) 9.4 07/08/18530 - 07/07/181899 CHEMISTRY 07/08/1853007/08/1853007/07/181899 CHEMISTRY Glucose 70-100 (mg/dL) 96 97 Sodium 135-145 (meq/L) 137 135 Potassium 3.5-5.3 (meq/L) 4.5 4.5 Chloride 99-110 (meq/L) 105 105 CO2 20-29 (meq/L) 24 21 Anion Gap with K 6-20 (meq/L) 13 14 BUN 6-22 (mg/dL) 34 39 Creatinine 0.80-1.30 (mg/dL) 1.52 1.68 BUN/Creatinine Ratio 10.0-25.0 22.4 23.2 Calcium 8.5-10.5 (mg/dL) 8.9 8.8 Corrected Calcium 8.5-10.5 (mg/dL) 9.3 Phosphorus 2.5-4.5 (mg/dL) 1.9 Bilirubin Total 0.2-1.2 (mg/dL) 0.5 Bilirubin Direct 0.0-0.4 (mg/dL) 0.3 Bilirubin Indirect 0.0-0.8 (mg/dL) 0.2 Alkaline Phosphatase 30-150 (U/L) 82 ALT - SGPT 0-55 (U/L) 7 AST - SGOT 0-35 (U/L) 27 Protein Total 6.0-8.2 (g/dL) 5.6 Albumin 3.5-5.0 (g/dL) 3.1 3.4 eGFR >=60 (mL/min/1.73m2) 53 47 eGFR Non- >=60 (mL/min/1.73m2) 43 39 07/07/18 1842 - 07/07/18 1842 ECG/EKG 07/07/18 184 ECG/EKG EKG WAVEFORM Sinus rhythm with 1st degree A-V block Otherwise normal ECG Ventricular Rate: 86 BPM Atrial Rate: 86 BPM P-R Interval: 226 ms QRS Duration: 86 ms Q-T Interval: 356 ms QTc Calculation(Bazett): 426 ms Calculated R Purdum: 17 degrees Calculated T Purdum: 32 degrees 07/08/18 0531 - 07/07/18 1900 OTHER 07/08/18 0531 07/07/18 1900 OTHER [age]Years) [age] Jesús Rowe PA - 07/08/2018 10:36 AM CDT Orthopedic Daily Progress note: UE: S: 3 Days Post-Op, Procedure(s): RIGHT TOTAL SHOULDER ARTHROPLASTY O: A/O, Pain controlled, Incision C/D/I Radial, ulnar and median nerve motor and sensory function functional. Patient transferred from to [facility]. Venous duplex, ECHO, CXR, VQ lung scans ordered by [facility] Current Vital Signs Temp: 98.4 F (36.9 C) BP: 119/71 Pulse: 107 O2 Device: Room Air O2 Flow Rate (L/min): 2 l/min Resp: 16 Pain Ratin (out of 10) Weight: 71.8 kg (158 lb 4.6 oz) SpO2: 98 % Pain Ratin Pain Location: Shoulder Specify: Right Pain character: Aches Intake/Output Summary (Last 24 hours) at 07/08/2018 1036 Last data filed at 07/08/2018 0742 Gross per 24 hour Intake 500 ml Output 2850 ml Net -2350 ml Lab Results Component Value Date HEMOGLOBIN 9.5 (L) 07/07/2018 Lab Results Component Value Date NA 135 07/07/2018 No results found for: INR, PT Lab review: labs were reviewed and discussed with patient by ordering provider. Elevated Troponin and BNP Assessment/Plan: 3 Days Post-Op, Procedure(s): RIGHT TOTAL SHOULDER ARTHROPLASTY Discharge to TCU pending medical clearance LAYLA Brantley, JAZIEL-C Merced Gil MD - 07/07/2018 6:34 PM CDTPatient complaining of shortness of breath. This is worse from his baseline. No chest pain. Has hypertension. Has valvular heart disease. No echo on file. No coronary artery disease. No history of COPD. Underwent right shoulder arthroplasty on . Less likely PE. Received fluids postop. Has chronic kidney disease. Lungs clear to auscultation. Trace pedal edema on the right. Symptoms likely from fluid overload. Will obtain chest x-ray and BNP. Will have to check for preoperative cardiac event. Will order EKG and troponin. Anna Marcum APRN-CLIENT SPECIALIST - 07/07/2018 1:10 PM CDT DAILY PROGRESS NOTE Rama Rosales is a 88yr old male admitted on 07/05/2018 6:45 AM. Impression / Plan Active Problems: Status post total shoulder replacement, right Resolved Problems: * No resolved hospital problems. * Plan: 1. HTN - stable - continue norvasc, labetalol - hold hctz and losartan 2. CKD 3 - stable 3. Mild hyperkalemia - resolved 4. Paroxysmal atrial fibrillation - currently NSR - denies use of anti-coagulants including but not limited to coumadin and ASA - continue labetalol 5. S/p right total shoulder arthroplasty - managed by ortho - scheduled tylenol/tramadol with prn oxy for pain - ASA for dvt prophylaxis - case management for discharge planning, he has AKA with prosthesis 6. Hx of aortic valve stenosis 7. FIGUEROA 8. Acute blood loss anemia. Stable. 9. AKA Interval History POD 2. Reports good pain control. Denies nausea. Eating okay. No overnight events. Review of Systems Review of Systems Respiratory: Negative for cough and shortness of breath. Cardiovascular: Negative for chest pain. Gastrointestinal: Negative for abdominal pain. Musculoskeletal: Positive for arthralgias. Neurological: Negative for dizziness. Psychiatric/Behavioral: Negative for confusion. Physical Exam Vital Signs: Temp: 98.3 F (36.8 C) | BP: 137/80 | Pulse: 90 | Resp: 16 | Pain Ratin (out of 10) | Weight: 71.8 kg (158 lb 4.6 oz) | O2 Device: Room Air O2 Flow Rate (L/min): 2 l/min | SpO2: 95 % Maximum Temperatures (last 24 hours) Temperature Maximum Max Temp 98.4 F (36.9 C) Intake and Output: 07/06 0700 - 07/07 0659 In: 3464 [Oral:1250] Out: 1150 [Urine:1150] Physical Exam HENT: Head: Normocephalic. Cardiovascular: Normal rate, regular rhythm, normal heart sounds and intact distal pulses. Pulmonary/Chest: Effort normal and breath sounds normal. No stridor. No respiratory distress. Abdominal: Soft. Bowel sounds are normal. He exhibits no distension. There is no tenderness. Neurological: He is alert. Skin: Skin is warm and dry. Nursing note and vitals reviewed. Labs Labs (Last day) 07/07/18533 - 07/07/18 05 CBC 07/07/1834 CBC Hemoglobin 13.5-17.5 (g/dL) 9.0 07/07/18 0534 - 07/07/18 0534 CHEMISTRY 07/07/18 0534 CHEMISTRY Glucose 70-100 (mg/dL) 92 Sodium 135-145 (meq/L) 135 Potassium 3.5-5.3 (meq/L) 4.9 Chloride 99-110 (meq/L) 105 CO2 20-29 (meq/L) 23 Anion Gap with K 6-20 (meq/L) 12 BUN 6-22 (mg/dL) 45 Creatinine 0.80-1.30 (mg/dL) 1.79 BUN/Creatinine Ratio 10.0-25.0 25.1 Calcium 8.5-10.5 (mg/dL) 8.6 eGFR >=60 (mL/min/1.73m2) 44 eGFR Non- >=60 (mL/min/1.73m2) 36 07/07/18 0534 - 07/07/18 0534 OTHER 07/07/18 0534 OTHER Age (Years) 88 Medical Decision making MDM Reviewed: nursing note Interpretation: labs Gray Carr PA - 07/07/2018 9:21 AM CDT Ortho Progress Note Rama Rosales is a 88yr male here for 2 Days Post-Op, Procedure(s): RIGHT TOTAL SHOULDER ARTHROPLASTY. Patient of BP 137/80 | Pulse 90 | Temp 98.3 F (36.8 C) | Resp 16 | Ht 1.626 m (5' 4 ") | Wt 71.8 kg (158 lb 4.6 oz) | SpO2 95% | BMI 27.17 kg/m Maximum Temperatures (last 24 hours) Temperature Maximum Max Temp 98.4 F (36.9 C) { Lab Results Component Value Date HEMOGLOBIN 9.0 (L) 07/07/2018 Patient doing ok, complains of mild pain. The patient denies nausea. The wound has No drainage. Compartments soft and non-tender. Distal NV intact. Slowly improving with Physical Therapy today. Having trouble fitting his leg because of swelling. Continue care plan. L:ooking into temporary placement. Anna Marcum APRN-CNP - 2:19 PM CDT DAILY PROGRESS NOTE Rama Rosales is a 88yr old male admitted on 07/05/2018 6:45 AM. Impression / Plan Active Problems: Status post total shoulder replacement, right Resolved Problems: * No resolved hospital problems. * Plan: 1. HTN - stable - continue norvasc, labetalol - hold hctz and losartan 2. CKD 3 - stable 3. Mild hyperkalemia - encourage fluids - check in the morning - hold losartan 4. Paroxysmal atrial fibrillation - currently NSR - denies use of anti-coagulants including but not limited to coumadin and ASA - continue labetalol 5. S/p right total shoulder arthroplasty - managed by ortho - scheduled tylenol/tramadol with prn oxy for pain - ASA for dvt prophylaxis - home when ready 6. Hx of aortic valve stenosis 7. FIGUEROA 8. Acute blood loss anemia. Stable. 9. AKA Interval History POD 1. Reports good pain control. [place] nauseas with OT this morning. No overnight events. Review of Systems Review of Systems Respiratory: Negative for cough and shortness of breath. Cardiovascular: Negative for chest pain. Gastrointestinal: Negative for abdominal pain. Musculoskeletal: Positive for arthralgias. Neurological: Negative for dizziness. Psychiatric/Behavioral: Negative for confusion. Physical Exam Vital Signs: Temp: 97.5 F (36.4 C) | BP: 110/68 | Pulse: 71 | Resp: 16 | Pain Ratin (out of 10) | Weight: 71.8 kg (158 lb 4.6 oz) | O2 Device: NC - no humidity O2 Flow Rate (L/min): 2 l/min | SpO2: 100 %(2 L/min) Maximum Temperatures (last 24 hours) Temperature Maximum Max Temp 97.6 F (36.4 C) Intake and Output: 07/05 0700 - 07/06 0659 In: 1914 [Oral:550] Out: 550 [Urine:300; Emesis:200] Physical Exam HENT: Head: Normocephalic. Cardiovascular: Normal rate, regular rhythm, normal heart sounds and intact distal pulses. Pulmonary/Chest: Effort normal and breath sounds normal. No stridor. No respiratory distress. Abdominal: Soft. Bowel sounds are normal. He exhibits no distension. There is no tenderness. Neurological: He is alert. Skin: Skin is warm and dry. Nursing note and vitals reviewed. Labs Labs (Last day) 07/06/18526 - 07/06/18526 CBC 07/06/18526 CBC Hemoglobin 13.5-17.5 (g/dL) 9.5 07/06/18526 - 07/06/18526 CHEMISTRY 07/06/1852607/06/18526 CHEMISTRY Glucose 70-100 (mg/dL) 109 Sodium 135-145 (meq/L) 136 Potassium 3.5-5.3 (meq/L) 5.4 Chloride 99-110 (meq/L) 107 CO2 20-29 (meq/L) 22 Anion Gap with K 6-20 (meq/L) 12 BUN 6-22 (mg/dL) 41 Creatinine 0.80-1.30 (mg/dL) 1.86 BUN/Creatinine Ratio 10.0-25.0 22.0 Calcium 8.5-10.5 (mg/dL) 8.4 Corrected Calcium 8.5-10.5 (mg/dL) 9.0 Phosphorus 2.5-4.5 (mg/dL) 4.2 Magnesium 1.8-2.4 (mg/dL) 2.0 Albumin 3.5-5.0 (g/dL) 3.3 eGFR >=60 (mL/min/1.73m2) 42 eGFR Non- >=60 (mL/min/1.73m2) 34 07/06/18 05 - 07/06/18526 OTHER 07/06/18526 OTHER Age (Years) 88 Medical Decision making MDM Reviewed: nursing note Interpretation: labs Gray flynn PA - 07/06/2018 9:25 AM CDT Ortho Progress Note Rama Rosales is a 88yr male here for 1 Day Post-Op, Procedure(s): RIGHT TOTAL SHOULDER ARTHROPLASTY. Patient of BP 110/68 | Pulse 71 | Temp 97.5 F (36.4 C) | Resp 16 | Ht 1.626 m (5' 4 ") | Wt 71.8 kg (158 lb 4.6 oz) | SpO2 100% | BMI 27.17 kg/m Maximum Temperatures (last 24 hours) Temperature Maximum Max Temp 97.6 F (36.4 C) { Lab Results Component Value Date HEMOGLOBIN 9.5 (L) 07/06/2018 Patient doing ok, complains of mild pain. The patient denies nausea. The wound has No drainage. Compartments soft and non-tender. Distal NV intact. Doing well with Therapy today. Continue care plan. Home later today. Isha Nguyen - 07/05/2018 7:24 AM CDTPatient was seen by pharmacy [facility] the [facility]. HOME MEDICATIONShave been reconciled and updated to match the patient's home usage. Does the patient have home prescription medication bottles with them:No Pain management: Patienttakes ibuprofen 600 mg q4h prn (last dose 07/01 PM) Patient has been holding vitamins/medications for 1-2 days except labetalol ( this AM @ 0600) Patient states he is out of amlodipine and labetalol and would like refills upon discharge. Medications added: Turmeric 250 mg daily Medications deleted: Diclofenac gel Medications changed: Niacin 500 mg at noon (was HS) Thank you, Isha Bal, PharmD Car Inspector documented in this encounter Plan of Treatment Date Type Specialty Care Team Description 07/18/2018 Office Visit Orthopedics Mateo Cartwright MD [address] [place] [address] [phone] 08/01/2018 Office Visit Orthopedics Mateo Cartwright MD [address] [facility] [place] [address] [phone] Health Maintenance Due Date Last Done Comments Tetanus Vaccine 1948 Zoster Vaccine (1 of 2 - 1980 RZV,Shingrix) [employer] Directive 1995 document Pneumococcal 65yr+ Low/Med Risk (1 1995 of 2 - PCV13) Influenza Vaccine (Season Ended) 2018 Diabetes Screening 07/09/2021 07/09/2018, 07/08/2018, 07/07/2018, Additional history exists documented as of this encounter Implants Implanted Type Area Home Support Worker Device Shelf Model / Identifier Expiration Date Serial / Lot Cmnt Bone Simplex P Half Dose N 6188-1-010 Ca10/Ea1 - Sn/A Right: CONNOR 06/04/2020 [id number] / Implanted: Qty: 1 on 07/05/2018 by Mateo Cartwright MD SHOULDER N/A / [id number] Shldr Glenoid Peg Cortiloc S40 N [id number] Ea1 - [id number] Right: TORNIER 01/15/2023 [id number] / Implanted: Qty: 1 on 07/05/2018 by Mateo Cartwright MD SHOULDER [id number] / N/A Shldr Humr Stem Std 6c 86mm N [id number] Ea1 - [id number] Right: TORNIER [id number] / Implanted: Qty: 1 on 07/05/2018 by Mateo Cartwright MD SHOULDER [id number] / N/A Shldr Humr Hd Stb High 48x16 N [id number] Ea1 - [id number] Right: TORNIER [id number] / Implanted: Qty: 1 on 07/05/2018 by Mateo Cartwright MD SHOULDER [id number] / N/A documented as of this encounter Procedures Procedure Name Priority Date/Time Associated Diagnosis Comments MAGNESIUM Routine 07/10/2018 5:26 Results for this AM CDT procedure are in the results section. RENAL FUNCTION PANEL Routine 07/10/2018 5:26 Results for this AM CDT procedure are in the results section. COMPLETE BLOOD COUNT Routine 07/09/2018 5:43 Results for this WITHOUT DIFFERENTIAL AM CDT procedure are in the results section. BASIC METABOLIC PANEL Routine 07/09/2018 5:43 Results for this AM CDT procedure are in the results section. NM LUNG VQ SCAN Routine 07/08/2018 11:43 Results for this VENTILATION AND AM CDT procedure are in PERFUSION the results section. US VENOUS DUPLEX Routine 07/08/2018 10:34 Results for this UPPER EXTREMITY AM CDT procedure are in UNILAT RT the results section. ECHO ADULT COMPLETE Routine 07/08/2018 9:13 Results for this AM CDT procedure are in the results section. TROPONIN I Routine 07/08/2018 5:31 Results for this AM CDT procedure are in the results section. HEPATIC FUNCTION Routine 07/08/2018 5:31 Results for this PANEL AM CDT procedure are in the results section. BASIC METABOLIC PANEL STAT 07/08/2018 5:31 Results for this AM CDT procedure are in the results section. XRAY CHEST PA AND Routine 07/07/2018 7:14 Results for this LATERAL PM CDT procedure are in the results section. COMPLETE BLOOD COUNT Routine 07/07/2018 7:00 Results for this WITHOUT DIFFERENTIAL PM CDT procedure are in the results section. TROPONIN I Routine 07/07/2018 7:00 Results for this PM CDT procedure are in the results section. RENAL FUNCTION PANEL Routine 07/07/2018 7:00 Results for this PM CDT procedure are in the results section. BRAIN NATRIURETIC STAT 07/07/2018 7:00 Results for this PEPTIDE PM CDT procedure are in the results section. EKG Routine 07/07/2018 6:42 Results for this PM CDT procedure are in the results section. HEMOGLOBIN Routine 07/07/2018 5:34 Results for this AM CDT procedure are in the results section. BASIC METABOLIC PANEL Routine 07/07/2018 5:34 Results for this AM CDT procedure are in the results section. HEMOGLOBIN Routine 07/06/2018 5:27 Results for this AM CDT procedure are in the results section. MAGNESIUM Routine 07/06/2018 5:27 Results for this AM CDT procedure are in the results section. RENAL FUNCTION PANEL Routine 07/06/2018 5:27 Results for this AM CDT procedure are in the results section. XRAY SHOULDER 1 VIEW Routine 07/05/2018 12:24 Results for this RT PM CDT procedure are in the results section. TISSUE EXAM Routine 07/05/2018 11:03 Degenerative joint Results for this AM CDT disease of shoulder procedure are in region the results section. 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 Magnesium 1.8 1.8 - 2.4 mg/dL Specimen Blood - Blood Performing Organization Address City/State/Zipcode Phone Number [phone] [place] [place] [address] RENAL FUNCTION PANEL (07/10/2018 5:26 AM CDT)Only the most recent of3 resultswithin the time period is included. Glucose 101 (H) 70 - 100 mg/dL BUN 38 (H) 6 - 22 mg/dL Creatinine 1.43 (H) 0.80 - 1.30 mg/dL BUN/Creatinine Ratio 26.6 (H) 10.0 - 25.0 Sodium 142 135 - 145 meq/L Potassium 4.3 3.5 - 5.3 meq/L Chloride 107 99 - 110 meq/L CO2 24 20 - 29 meq/L Anion Gap with K 15 6 - 20 meq/L Calcium 9.0 8.5 - 10.5 mg/dL Phosphorus 3.1 2.5 - 4.5 mg/dL Albumin 3.2 (L) 3.5 - 5.0 g/dL Corrected Calcium 9.6 8.5 - 10.5 mg/dL Age 88 Years eGFR Non- 47 (L) >=60 mL/min/1.73m2 eGFR 57 (L) >=60 mL/min/1.73m2 Specimen Blood - Blood Performing Organization Address City/State/Zipcode Phone Number [phone] [place] [address] BASIC METABOLIC PANEL WITH GFR (07/09/2018 5:43 AM CDT)Only the most recent of3 resultswithin the time period is included. Glucose 93 70 - 100 mg/dL BUN 29 (H) 6 - 22 mg/dL Creatinine 1.45 (H) 0.80 - 1.30 mg/dL BUN/Creatinine Ratio 20.0 10.0 - 25.0 Sodium 140 135 - 145 meq/L Potassium 4.6 3.5 - 5.3 meq/L Chloride 106 99 - 110 meq/L CO2 25 20 - 29 meq/L Anion Gap with K 14 6 - 20 meq/L Calcium 9.0 8.5 - 10.5 mg/dL Age 88 Years eGFR Non- 46 (L) >=60 mL/min/1.73m2 eGFR 56 (L) >=60 mL/min/1.73m2 Specimen Blood - Blood Performing Organization Address [facility] Center[facility] Phone Number [phone] [place], [place] [address] COMPLETE BLOOD COUNT WITHOUT DIFFERENTIAL (07/09/2018 5:43 AM CDT)Only the most recent of2 resultswithin the time period is included. WBC 5.4 4.0 - 11.0 K/uL RBC 2.98 (L) 4.40 - 5.80 M/uL Hemoglobin 9.1 (L) 13.5 - 17.5 g/dL Hematocrit 27.9 (L) 40.0 - 50.0 % MCV 93.6 80.0 - 98.0 fL MCH 30.5 25.5 - 34.0 pg MCHC 32.6 31.5 - 36.5 g/dL RDW-CV 12.9 11.5 - 15.5 % RDW-SD 42.8 35.5 - 50.0 fl Platelet Count 180 140 - 400 K/uL MPV 10.3 8.5 - 12.0 fL Specimen Blood - Blood Performing Organization Address City/[facility] Cent[facility]ode Phone Number [phone] [place], [place] [address] NM LUNG VQ SCAN VENTILATION AND PERFUSION (07/08/2018 11:43 AM CDT) Narrative Performed At [facility] Patient Name: RAMA ROSALES Date of :1930 Procedure: NM LUNG VQ SCAN VENTILATION AND PERFUSION Date of Service: 07/08/2018 EXAM: NM LUNG VQ SCAN VENTILATION AND PERFUSION INDICATION:shortness of breath after surgery. COMPARISON(S): Chest radiograph 07/07/2018 DOSE: 5.5 mCi Tc-99m DTPA administered via aerosolized inhalation. 37.3 mCi Tc-99m MAA administered IV. TECHNIQUE: Planar imaging of the thorax was completed in multiple obliquities following radiotracer administration. FINDINGS: Right shoulder hardware-related photopenia. Right shoulder was not able to be elevated due to recent surgery. Arm in a sling with no patient reported associated metal. No mismatched perfusion defects. Triple matched segmental perfusion defect right lower lobe. Clumping of radiotracer in the central airways right greater than left can be seen with reduced ventilatory effort or COPD. IMPRESSION: Intermediate probability for pulmonary embolism based on modified PIOPED criteria. Correlation of today's results with clinical pretest probability including knowledge that the right brachial vein contains chronic nonocclusive DVT is recommended. Finalized by: Francheska Mantilla MD on 07/08/2018 12:10 PM Patient/Procedure Information: [facility] MRN/RAGHU: [id number] Order Number: [id number] Accession Number: [id number] Ordering Provider: MERCED HINOJOSA Authorizing Provider: MERCED HINOJOSA Procedure Note [facility], [facility] - 07/08/2018 12:12 PM CDT Patient Name: RAMA ROSALES Date of : 1930 Procedure: NM LUNG VQ SCAN VENTILATION AND PERFUSION Date of Service: 07/08/2018 EXAM: NM LUNG VQ SCAN VENTILATION AND PERFUSION INDICATION:shortness of breath after surgery. COMPARISON(S): Chest radiograph 07/07/2018 DOSE: 5.5 mCi Tc-99m DTPA administered via aerosolized inhalation. 37.3 mCi Tc-99m MAA administered IV. TECHNIQUE: Planar imaging of the thorax was completed in multiple obliquities following radiotracer administration. FINDINGS: Right shoulder hardware-related photopenia. Right shoulder was not able to be elevated due to recent surgery. Arm in a sling with no patient reported associated metal. No mismatched perfusion defects. Triple matched segmental perfusion defect right lower lobe. Clumping of radiotracer in the central airways right greater than left can be seen with reduced ventilatory effort or COPD. IMPRESSION: Intermediate probability for pulmonary embolism based on modified PIOPED criteria. Correlation of today's results with clinical pretest probability including knowledge that the right brachial vein contains chronic nonocclusive DVT is recommended. Finalized by: Francheska Mantilla MD on 07/08/2018 12:10 PM Patient/Procedure Information: [facility] MRN/RAGHU: [id number] Order Number: [id number] Accession Number: [id number] Ordering Provider: MERCED HINOJOSA Authorizing Provider: MERCED HINOJOSA Performing Organization Address [facility] Centercode Phone Number [phone] US VENOUS DUPLEX UPPER EXTREMITY UNILAT RT (07/08/2018 10:34 AM CDT) Narrative Performed At Name: Rama Rosales [facility] RADIOLOGY : 1930 Date of Service: 07/08/2018 EXAM: US VENOUS DUPLEX UPPER EXTREMITY UNILAT RT INDICATION: SOB, please check for dvt COMPARISON(S): none TECHNIQUE:Multiple real-time sonographic images obtained using grayscale, color, and spectral Doppler. FINDINGS: RIGHT: Innominate Phasicity: Normal Internal Jugular Vein: Compressibility: Compresses Phasicity: Normal Subclavian Vein: Compressibility: Compresses Phasicity: Normal Axillary Vein: Compressibility: Compresses Phasicity: Normal Augmentation: Normal Brachial Vein: Compressibility: Partial Compression Phasicity: Normal Augmentation: Normal Basilic Vein: Compressibility: Compresses Phasicity: Normal Augmentation: Normal Cephalic Vein: Compressibility: Compresses Phasicity: Normal Augmentation: Normal LEFT: Innominate Phasicity: Normal Internal Jugular Vein: Compressibility: Compresses Phasicity: Normal Proximal Subclavian Vein: Phasicity: Normal IMPRESSION: 1. 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 2. No evidence of superficial venous thrombosis in the right upper extremity. 3. Left central veins are widely patent. Performing Organization Address [facility] Cent[facility]ode Phone Number [facility] [place] [address] ECHO ADULT COMPLETE (07/08/2018 9:13 AM CDT) Narrative Performed At [facility] Patient: RAMA ROSALES MR#: [id number] Exam Date: 07/08/2018 Transthoracic Echocardiogram [facility] [address] [place], [id number] : 147/81 mmHg HR:89 bpm : 1930xam Location: Bedside Height:64.00 "( 162.6 cm) Age: 88 year(s)Patient Room: 841 01Weight:158 lbs.( 71.67 kg) Gender:MalePatient Status: Inpatient BSA: 1.77 m2 Pouch Maker: SOLIS KESSLER RDCS (, FE) RVT Reading Physician: PHYLLIS ECKERT MD Ordering Physician:MERCED HINOJOSA MD Procedure Indication(s):Shortness of breath, Troponin mildly elevated, please eval cardiac function, EF, wall motion Examination:TTE Complete 2D(m-mode) , Complete Spectral Doppler, Color Doppler Conclusions Left Ventricle: Normal left ventricular systolic function. The ejection fraction is visually estimated to be 65 %. Aortic Valve: Trivial aortic regurgitation. Moderate aortic stenosis. Aortic valve mean gradient=33 mmHg.Visually appears worse.Please correlate clinically. Right Ventricle: Normal right ventricular systolic function. IVC: Normal IVC size with normal respirophasic changes. Pericardium: No significant pericardial effusion. Comparison Study Comparison Study: No previous echo was available for comparison Findings Left Ventricle: Normal left ventricular size. Normal left ventricular wall thickness. Normal left ventricular systolic function. The ejection fraction is visually estimated to be 65 %. There are no left ventricular regional wall motion abnormalities. Normal left ventricular diastolic function. Left Atrium: Normal left atrial size. Aortic Valve: The aortic valve is tricuspid. Moderate aortic cuspal thickening. Moderate aortic cuspal calcification. Trivial aortic regurgitation. Moderate aortic stenosis. Aortic valve mean gradient=33 mmHg.Visually appears worse.Please correlate clinically. 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 Mitral Valve: Mild mitral leaflet thickening. No significant mitral regurgitation. No mitral stenosis. IAS: No gross evidence of shunt flow seen; however the possibility of a PFO cannot be completely ruled out. Right Ventricle: Normal right ventricular size. Normal right ventricular systolic function. Normal right ventricular wall thickness. Pulmonary artery systolic pressure is measured at 31 mmHg. Pulmonary Artery: No significant pulmonary artery hypertension. Right Atrium: Normal right atrial size. Tricuspid Valve: Normal tricuspid valve structure. Trivial tricuspid regurgitation. Pulmonic Valve: Normal pulmonary valve structure. No significant pulmonary regurgitation. No pulmonary stenosis. IVC: Normal IVC size with normal respirophasic changes. Pericardium: No significant pericardial effusion. No pleural effusion. Measurements Left Ventricle Aortic Valve LabelValueNormal Value LabelValue Normal Value LVDd, 2D40.6 mm LVOT Vmax 122 cm/s LVDs, 2D29.6 mm AV Vmax 374 cm/s IVSd, 2D12.1 mm LVOTd 22 mm LVPWd, 2D 10.7 mm LVOT VTI19.3 cm FS, 2D27.09 % LVOT PGmax7 mmHg Cardiac Output8.28 L/min AV Kdode216 cm/s Cardiac Index 4.68 AV VTI61.2 cm L/min/m-sq AV PGmax 46 mmHg LVEDVI, 2D40.7 ml/m2 AV PGmean 33 mmHg LVESVI, 2D19.2 ml/m2 AV Vmax, Pqujmzj892 cm/s Stroke Index52.54 DENNY(VTI)1.2 cm-sq ml/m-sqObstruction Index 0.32 Left Atrium (VTI) LabelValueNormal Value DENNY (Vmax)1.4 cm-sq LADs Long.51 mm Obstructive Index 0.33 LA Volume Index 14 ml/m-sq (Vmax) Aorta Mitral Valve LabelValueNormal Value LabelValue Normal Value Ao Vzrtmfescxj27.4 mm MV E Vmax 66 cm/s Ao Asc43 mm MV A Vmax 118 cm/s Ao Sinus, 2D38 mm MV E/A0.56 Heart Rate MV E/E' lateral 7.8 LabelValueNormal Value MV E/E' septal8.7 Heart Rate89 bpm MV Dec Time 173 ms MV E' septal0.1 cm/s MV E' lateral 0.1 cm/s Tricuspid Valve LabelValueNormal Value TR Vmax 265 cm/s TR Pmax 28 mmHg RA Pressure 3 mmHg RVSP31 mmHg Pulmonic Valve LabelValueNormal Value PV Vmax 75 cm/s PV PGmax2 mmHg at 12: 49 PM Procedure Note Interface, Inc Results No Pull Forward - 07/08/2018 12:51 PM CDT Patient: RAMA ROSALES MR#: [id number] Exam Date: 07/08/2018 Transthoracic Echocardiogram [facility] [address] [place] [address] BP: 147/81 mmHg HR: 89 bpm : 1930 Exam Location: Bedside Height: 64.00 "(162.6 cm) Age: 88 year(s) Patient Room: 841 01 Weight: 158 lbs.(71.67 kg) Gender: Male Patient Status: Inpatient BSA: 1.77 m2 Pouch Maker: SOLIS KESSLER RDCS (PE, FE) RVT Reading Physician: PHYLLIS ECKERT MD Ordering Physician: MERCED HINOJOSA MD Procedure Indication(s): Shortness of breath, Troponin mildly elevated , please eval cardiac function, EF, wall motion Examination: TTE Complete 2D(m-mode), Complete Spectral Doppler, Color Doppler Conclusions Left Ventricle: Normal left ventricular systolic function. The ejection fraction is visually estimated to be 65 %. Aortic Valve: Trivial aortic regurgitation. Moderate aortic stenosis. Aortic valve mean gradient=33 mmHg.Visually appears worse.Please correlate clinically. Right Ventricle: Normal right ventricular systolic function. IVC: Normal IVC size with normal respirophasic changes. Pericardium: No significant pericardial effusion. Comparison Study Comparison Study: No previous echo was available for comparison Findings Left Ventricle: Normal left ventricular size. Normal left ventricular wall thickness. Normal left ventricular systolic function. The ejection fraction is visually estimated to be 65 %. There are no left ventricular regional wall motion abnormalities. Normal left ventricular diastolic function. Left Atrium: Normal left atrial size. Aortic Valve: The aortic valve is tricuspid. Moderate aortic cuspal thickening. Moderate aortic cuspal calcification. Trivial aortic regurgitation. Moderate aortic stenosis. Aortic valve mean gradient=33 mmHg.Visually appears worse.Please correlate clinically. 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 Mitral Valve: Mild mitral leaflet thickening. No significant mitral regurgitation. No mitral stenosis. IAS: No gross evidence of shunt flow seen; however the possibility of a PFO cannot be completely ruled out. Right Ventricle: Normal right ventricular size. Normal right ventricular systolic function. Normal right ventricular wall thickness. Pulmonary artery systolic pressure is measured at 31 mmHg. Pulmonary Artery: No significant pulmonary artery hypertension. Right Atrium: Normal right atrial size. Tricuspid Valve: Normal tricuspid valve structure. Trivial tricuspid regurgitation. Pulmonic Valve: Normal pulmonary valve structure. No significant pulmonary regurgitation. No pulmonary stenosis. IVC: Normal IVC size with normal respirophasic changes. Pericardium: No significant pericardial effusion. No pleural effusion. Measurements Left Ventricle Aortic Valve Label Value Normal Value Label Value Normal Value LVDd, 2D 40.6 mm LVOT Vmax 122 cm/s LVDs, 2D 29.6 mm AV Vmax 374 cm/s IVSd, 2D 12.1 mm LVOTd 22 mm LVPWd, 2D 10.7 mm LVOT VTI 19.3 cm FS, 2D 27.09 % LVOT PGmax 7 mmHg Cardiac Output 8.28 L/min AV Vmean 257 cm/s Cardiac Index 4.68 AV VTI 61.2 cm L/min/m-sq AV PGmax 46 mmHg LVEDVI, 2D 40.7 ml/m2 AV PGmean 33 mmHg LVESVI, 2D 19.2 ml/m2 AV Vmax, Caliper 339 cm/s Stroke Index 52.54 DENNY (VTI) 1.2 cm-sq ml/m-sq Obstruction Index 0.32 Left Atrium (VTI) Label Value Normal Value DENNY (Vmax) 1.4 cm-sq LADs Long. 51 mm Obstructive Index 0.33 LA Volume Index 14 ml/m-sq (Vmax) Aorta Mitral Valve Label Value Normal Value Label Value Normal Value Ao Sinotubular 31.4 mm MV E Vmax 66 cm/s Ao Asc 43 mm MV A Vmax 118 cm/s Ao Sinus, 2D 38 mm MV E/A 0.56 Heart Rate MV E/E' lateral 7.8 Label Value Normal Value MV E/E' septal 8.7 Heart Rate 89 bpm MV Dec Time 173 ms MV E' septal 0.1 cm/s MV E' lateral 0.1 cm/s Tricuspid Valve Label Value Normal Value TR Vmax 265 cm/s TR Pmax 28 mmHg RA Pressure 3 mmHg RVSP 31 mmHg Pulmonic Valve Label Value Normal Value PV Vmax 75 cm/s PV PGmax 2 mmHg at 12: 49 PM Performing Organization Address City/[facility] Phone Number [facility], [place] TROPONIN I (07/08/2018 5:31 AM CDT)Only the most recent of2 resultswithin the time period is included. Troponin I 0.136 (H) 0.000 - 0.028 ng/mL Specimen Blood - Blood Performing Organization Address [facility]/[employer] Phone Number [phone] [place] [phone] HEPATIC FUNCTION PANEL (07/08/2018 5:31 AM CDT) Alkaline Phosphatase 82 30 - 150 U/L AST - SGOT 27 0 - 35 U/L ALT - SGPT 7 0 - 55 U/L Bilirubin Total 0.5 0.2 - 1.2 mg/dL Bilirubin Indirect 0.2 0.0 - 0.8 mg/dL Bilirubin Direct 0.3 0.0 - 0.4 mg/dL Albumin 3.1 (L) 3.5 - 5.0 g/dL Protein Total 5.6 (L) 6.0 - 8.2 g/dL Specimen Blood - Blood Performing Organization Address City/State/Zipcode Phone Number [phone] [place] [phone] XRAY CHEST PA AND LATERAL - (07/07/2018 7:14 PM CDT) Narrative Performed At [facility] Patient Name: RAMA ROSALES Date of :1930 Procedure: XRAY CHEST PA AND LATERAL Date of Service: 07/07/2018 EXAM: XRAY CHEST PA AND LATERAL INDICATION:shortness of breath. ? pulmonary congestion. COMPARISON(S): None Available FINDINGS: Scarring right mid chest. Elevation right diaphragm. No large infiltrate. Heart not enlarged. No pneumothorax. IMPRESSION: 1. No acute process. Finalized by: Krunal Aburto MD on 07/07/2018 7:54 PM Patient/Procedure Information: [facility] MRN/RAGHU: [id number] Order Number: [id number] Accession Number: [id number] Ordering Provider: MERCED HINOJOSA Authorizing Provider: MERCED HINOJOSA Procedure Note Garret Galarza - 07/07/2018 7:56 PM CDT Patient Name: RAMA ROSALES Date of : 1930 Procedure: XRAY CHEST PA AND LATERAL Date of Service: 07/07/2018 EXAM: XRAY CHEST PA AND LATERAL INDICATION:shortness of breath. ? pulmonary congestion. COMPARISON(S): None Available FINDINGS: Scarring right mid chest. Elevation right diaphragm. No large infiltrate. Heart not enlarged. No pneumothorax. IMPRESSION: 1. No acute process. Finalized by: Krunal Aburto MD on 07/07/2018 7:54 PM Patient/Procedure Information: [facility] MRN/RAGHU: [id number] Order Number: [id number] Accession Number: [id number] Ordering Provider: MERCED HINOJOSA Authorizing Provider: MERCED HINOJOSA Performing Organization Address [facility] Phone Number [id number] BRAIN NATRIURETIC PEPTIDE (07/07/2018 7:00 PM CDT) BNP 373 (H) 0 - 100 pg/mL [facility] Specimen Blood - Blood Performing Organization Address [facility] Phone Number [facility] [address] [place] [address] EKG (07/07/2018 6:42 PM CDT) EKG [employer] [facility] Sinus rhythm with 1st degree A-V block Otherwise normal ECG Ventricular Rate: 86 BPM Atrial Rate: 86 BPM P-R Interval: 226 ms QRS Duration: 86 ms Q-T Interval: 356 ms QTc Calculation(Bazett): 426 ms Calculated R Purdum: 17 degrees Calculated T Purdum: 32 degrees Narrative Performed At Performing Organization Address [facility] Phone Number [facility] HEMOGLOBIN (07/07/2018 5:34 AM CDT)Only the most recent of2 resultswithin the time period is included. Hemoglobin 9.0 (L) 13.5 - 17.5 g/dL Specimen Blood - Blood Performing Organization Address [facility] Centercomt Phone Number [phone] [facility] [place], [place] [phone] XRAY SHOULDER 1V - RT (07/05/2018 12:24 PM CDT) Narrative Performed At [facility] Patient Name: RAMA ROSALES Date of :1930 Procedure: XRAY SHOULDER 1 VIEW RT Date of Service: 07/05/2018 EXAM: XRAY SHOULDER 1 VIEW RT INDICATION:post op TSA COMPARISON(S): None Available FINDINGS: Total shoulder prosthesis in place on the right with good position and alignment of the prosthetic components. Degenerative changes about the acromial clavicular joint, mostly craniad from the joint. Finalized by: Ta Castillo MD on 07/05/2018 12:35 PM Patient/Procedure Information: [facility] MRN/RAGHU: [id number] Order Number: [id number] Accession Number: [id number] Ordering Provider: GRAY PEARL Authorizing Provider: GRAY PEARL Procedure Note Interface, Radiantres - 07/05/2018 12:37 PM CDT Patient Name: RAMA ROSALES Date of : 1930 Procedure: XRAY SHOULDER 1 VIEW RT Date of Service: 07/05/2018 EXAM: XRAY SHOULDER 1 VIEW RT INDICATION:post op TSA COMPARISON(S): None Available FINDINGS: Total shoulder prosthesis in place on the right with good position and alignment of the prosthetic components. Degenerative changes about the acromial clavicular joint, mostly craniad from the joint. Finalized by: Ta Castillo MD on 07/05/2018 12:35 PM Patient/Procedure Information: [facility] MRN/RAGHU: [id number] Order Number: [id number] Accession Number: [id number] Ordering Provider: GRAY PEARL Authorizing Provider: GRAY PEARL Performing Organization Address City/State/Zipcode Phone Number [id number] TISSUE EXAM (07/05/2018 11:03 AM CDT) FINAL DIAGNOSIS Soft tissue, right shoulder, arthroscopy: [facility] - Bone fragments with changes grossly consistent with degenerative joint disease, and soft tissue fragments without gross pathological abnormality ( gross examination only; see gross description). HP:ch GROSS DESCRIPTION Received in formalin labeled "right shoulder bone and tissue " is a 4.7 x 4.6 x 1.4 cm. The articular surfaces are lee and smooth with diffuse areas of eburnation. The cut surfaces are pink-lee, porous [facility] , and smooth. No masses or lesions are grossly identified. No sections submitted. Gross examination only. MS:pf CASE REPORT Surgical Pathology Report Case: [id number] [facility] Authorizing Provider:Mateo Cartwright MD Collected: 07/05/2018 1103 Ordering Location: [facility] Received: 07/05/2018 1326 Pathologist: Katelin Marie MD Specimen:Shoulder, Right shoulder bone and tissue EMBEDDED IMAGES [facility] Specimen Bone - Shoulder Performing Organization Address City/[facility]/Zipcode Phone Number 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, unspecified whether generalized or localized, shoulder region Healthcare maintenance Routine general medical examination at a health care facility Phantom limb pain (HCC) Phantom limb (syndrome) Status post total shoulder replacement, right Acute blood loss anemia Acute posthemorrhagic anemia Shortness of breath Hyperkalemia Hyperpotassemia 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) documented in this encounter Administered Medications Medication Order MAR Action Action Date Dose Rate Site acetaminophen (TYLENOL) tablet Given 07/10/2018 5:35 AM CDT 650 mg 650 mg 650 mg, Oral, Every six hours, First dose on Tue07/05/18 at 1800, Until Discontinued, Post - Op, Alternate with tramadol (ULTRAM); Total dose of acetaminophen from all acetaminophen containing products should not exceed 4 grams (4000 mg) per day., Given 07/09/2018 6:01 PM CDT 650 mg Given 07/09/2018 12:31 PM CDT 650 mg amLODIPine (NORVASC) tablet 10 mg Given 07/09/2018 8:43 PM CDT 10 mg 10 mg, Oral, DAILY, First dose on Tue07/06/18 at 0900, Until Discontinued, Hold if SBP <120, Given 07/08/2018 8:14 PM CDT 10 mg Given 07/07/2018 8:00 PM CDT 10 mg aspirin (ECOTRIN) enteric coated tablet 325 Given 07/10/2018 8:42 AM CDT 325 mg mg 325 mg, Oral, Daily, First dose on Tue07/06/18 at 0900, Until Discontinued, Post - Op, Tablet should be swallowed whole and not be divided, crushed or chewed., Given 07/09/2018 10:14 AM CDT 325 mg Given 07/08/2018 8:25 AM CDT 325 mg bisacodyl (DULCOLAX) enteric coated tablet 5 Given 07/07/2018 8:03 PM CDT 5 mg mg 5 mg, Oral, Two times a day prn, Starting Tue07/05/18 at 1321, Until Discontinued, constipation, Post - Op, SECOND choice or per patient preference, gabapentin (NEURONTIN) capsule 100 mg Given 07/09/2018 8:43 PM CDT 100 mg 100 mg, Oral, Two times a day, First dose on Tue07/08/18 at 2100, Until Discontinued Given 07/09/2018 10:13 AM CDT 100 mg Given 07/08/2018 8:05 PM CDT 100 mg labetalol (NORMODYNE, TRANDATE) tablet 100 Given 07/10/2018 8:42 AM CDT 100 mg mg 100 mg, Oral, Two times a day, First dose on Tue07/05/18 at 2100, Until Discontinued, Hold if SBP <100 or HR <60, Given 07/09/2018 8:43 PM CDT 100 mg Given 07/09/2018 10:14 AM CDT 100 mg levalbuterol (XOPENEX) 0.63 MG/3ML inhalation soln 0.63 mg 0.63 mg, Nebulization, Every four hours prn, Starting Tue07/07/18 at 1838, Until Discontinued, shortness of breath., 3 mL niacin (SLO-NIACIN) CR tablet 500 mg Given 07/09/2018 12:31 PM CDT 500 mg 500 mg, Oral, Daily (Noon), First dose on Tue07/06/18 at 1200, Until Discontinued, Formulary Substitute for Niaspan 500mg, , Given 07/08/2018 1:15 PM CDT 500 mg Given 07/07/2018 11:25 AM CDT 500 mg ondansetron (ZOFRAN) injection solution 4 mg Given 07/06/2018 9:26 AM CDT 4 mg 4 mg, IV, Every four hours prn, Starting Tue07/05/18 at 1205, Until Discontinued, nausea, vomiting, 2 mL, PACU - Continue Post-Op, If ineffective after 15 minutes use promethazine If preference is to further dilute for IV administration: First draw up patient-specific dose, then dilute to 10 mL with 0.9% sodium chloride., polyethylene glycol (MIRALAX) packet 1 Given 07/07/2018 9:55 AM CDT 1 packet packet 1 packet, Oral, Daily, First dose on Arabella 07/06/18 at 0900, Until Discontinued, Post - Op, Hold if 2 loose stools occur in the last 24 hours., Given 07/06/2018 8:53 AM CDT 1 packet senna-docusate sodium Given 07/09/2018 8:43 PM CDT 1 tablet (SENOKOT-S;PERICOLACE) tablet 1 tablet 1 tablet, Oral, Two times a day, First dose on Tue07/05/18 at 2100, Until Discontinued, Post - Op, Hold if 2 loose stools occur in the last 24 hours., Given 07/07/2018 8:03 PM CDT 1 tablet Given 07/07/2018 9:54 AM CDT 1 tablet sodium chloride 0.9% flush (adult) 10 mL Given 07/10/2018 8:43 AM CDT 10 mL 10 mL, IV, Two times a day and prn, First dose on Tue07/05/18 at 2100, Until Discontinued, 10 mL, Post - Op, Flush IV line as scheduled and as often as necessary before and after meds., Given 07/09/2018 8:44 PM CDT 10 mL Given 07/09/2018 10:12 AM CDT 10 mL Medication Order MAR Action Action Date Dose Rate Site 99mTc-DTPA Aerosol 35 Given 07/08/2018 11:03 37.3 millicuries Other (See millicurie AM CDT Comments) 35 millicurie, Inhalation, Now imaging, 1 dose, Starting 07/08/18 at 1103, Until 07/08/18 at 1103 99mTc-MAA Lung 5 Given 07/08/2018 11:42 AM 5.5 millicuries Left Forearm Top millicurie CDT IV 5 millicurie, IV, Now imaging, 1 dose, Starting 07/08/18 at 1104, Until 07/08/18 at 1142 bumetanide (BUMEX) injection solution 1 mg Given 07/07/2018 9:27 PM CDT 1 mg 1 mg, IV, One time, 1 dose, Tue07/07/18 at 2120, 4 mL bumetanide (BUMEX) injection solution 1 mg Given 07/09/2018 10:06 AM CDT 1 mg 1 mg, IV, Daily, First dose on Tue07/09/18 at 0900, Until Discontinued, 4 mL ceFAZolin (ANCEF) 2000 mg/20 mL sterile Given 07/06/2018 3:04 AM CDT 2,000 mg water IV syringe 2,000 mg, IV, Every eight hours, 2 doses, First dose on Tue07/05/18 at 1900, Last dose on Tue07/06/18 at 0300, 20 mL, PACU - Continue Post-Op, Administer as IV push over 4 minutes., Given 07/05/2018 6:40 PM CDT 2,000 mg cyclobenzaprine (FLEXERIL) tablet 2.5 mg Given 07/07/2018 9:26 PM CDT 2.5 mg 2.5 mg, Oral, Three times a day prn, Starting Arabella 07/06/18 at 0923, Until 07/08/18 at 1830, muscle spasm, pain, Give 1/2 tablet and waste remaining half tab, dexamethasone sodium phosphate 5 mg, lidocaine 2% Given 07/05/2018 9:57 AM CDT 5 mL in ropivacaine 0.75 % 20 mL Peripheral Nerve Block Injection Syringe Perineural, Now, 1 dose, Tue07/05/18 at 0940, 25.5 mL, Pre - Op, Inject 5-10 mL per administration as directed by Anesthesia with a total maximum of 40 mL, gabapentin (NEURONTIN) capsule 600 mg Given 07/05/2018 7:59 AM CDT 600 mg 600 mg, Oral, Pre-op, 1 dose, Tue07/05/18 at 0710, Pre - Op, 1 dose prior to surgery, ketorolac (TORADOL) intravenous injection 15 Given 07/05/2018 7:59 AM CDT 15 mg mg 15 mg, IV, Pre-op, 1 dose, Tue07/05/18 at 0710, 1 mL, Pre - Op, 1 dose prior to surgery If preference is to further dilute for IV administration: First draw up patient-specific dose, then dilute to 10 mL with 0.9% sodium chloride., lactated ringers IV solution New Bag 07/05/2018 10:49 AM CDT IV, at 25 mL/hr, Continuous, Starting Tue07/05/18 at 0810, Until Tue07/05/18 at 1215, 1,000 mL, Pre - Op New Bag 07/05/2018 7:53 AM CDT 25 mL/hr lactated ringers IV solution Already Infusing 07/05/2018 12:12 PM CDT 125 mL/hr IV, at 125 mL/hr, Continuous, Starting Tue07/05/18 at 1210, Until Tue07/05/18 at 1313, 1,000 mL, PACU, TKO current fluids if patient is going to Day Unit / ARU and tolerating PO fluids without nausea., midazolam (VERSED) injection solution 0.25-2 Given 07/05/2018 9:57 AM CDT 1 mg mg 0.25-2 mg, IV, Every five minutes prn, 6 doses, Starting Tue07/05/18 at 0937, Until Tue07/05/18 at 1215, sedation, 2 mL, Pre - Op, Midazolam 0.25-2 mg q 5 min prn to a MAX of 5 mg as needed for sedation during procedure., sodium chloride 0.9% IV solution New Bag 07/06/2018 9:07 AM CDT 1,000 mL 100 mL/hr 100 mL, IV, at 100 mL/hr, Continuous, Starting Tue07/05/18 at 1325, Until Tue07/07/18 at 1838, 500 mL, Post - Op New 07/05/2018 11:43 PM CDT 100 mL 100 mL/hr New 07/05/2018 1:56 PM CDT 100 mL 100 mL/hr traMADol (ULTRAM) tablet 100 mg Given 07/05/2018 7:59 AM CDT 100 mg 100 mg, Oral, Pre-op, 1 dose, Tue07/05/18 at 0710, Pre - Op, Recommended maximum daily dose of [id number]=488 mg. Recommended maximum daily dose in patients 75 years or lslmh=880 mg., traMADol (ULTRAM) tablet 100 mg Given 07/05/2018 3:15 PM CDT 100 mg 100 mg, Oral, Every six hours, First dose on Tue07/05/18 at 1500, Until Discontinued, Post - Op, Alternate with acetaminophen (TYLENOL). Recommended maximum daily dose of [id number]=895 mg. Recommended maximum daily dose in patients greater than 75 years of ceo=860 mg, traMADol (ULTRAM) tablet 50 mg Given 07/06/2018 8:53 AM CDT 50 mg 50 mg, Oral, Every six hours, First dose on Tue07/05/18 at 2100, Until Discontinued, Post - Op, Alternate with acetaminophen (TYLENOL). Recommended maximum daily dose of [id number]=813 mg. Recommended maximum daily dose in patients greater than 75 years of age=300 mg, Given 07/06/2018 3:03 AM CDT 50 mg Given 07/05/2018 9:18 PM CDT 50 mg documented in this encounter
[2018-07-11] MEDS: Hydrochlorothiazide 25 MG Tab PO SCH (08:08)
[2018-07-11] MEDS: Magnesium Oxide 400 MG Tab PO SCH (08:08)
[2018-07-11] MEDS: Multivitamins with Iron/Calcium/Folic Acid/Minerals Tab PO SCH (08:08)
[2018-07-11] MEDS: Losartan 50 MG Tab PO SCH (08:08)
[2018-07-11] MEDS: Labetalol 100 MG Tab PO SCH ×2 (08:08→20:17)
[2018-07-11] MEDS: Folic Acid 1 MG Tab PO SCH (08:08)
[2018-07-11] MEDS: Cyanocobalamin (Vitamin B12) 1,000 MCG Tab PO SCH (08:08)
[2018-07-11] MEDS: Aspirin 325 MG Tab.EC PO SCH (08:09)
[2018-07-11] MEDS: Ferrous Sulfate 325 MG Tab PO SCH ×3 (08:09→20:17)
[2018-07-11] MEDS: amLODIPine 10 MG Tab PO SCH (20:17)
[2018-07-12] MEDS: Acetaminophen 325 MG Tab PO SCH ×4 (05:59→23:30)
[2018-07-12] MEDS: Labetalol 100 MG Tab PO SCH ×2 (08:13→19:36)
[2018-07-12] MEDS: Losartan 50 MG Tab PO SCH (08:14)
[2018-07-12] MEDS: Cyanocobalamin (Vitamin B12) 1,000 MCG Tab PO SCH (08:14)
[2018-07-12] MEDS: Hydrochlorothiazide 25 MG Tab PO SCH (08:14)
[2018-07-12] MEDS: Aspirin 325 MG Tab.EC PO SCH (08:14)
[2018-07-12] MEDS: Folic Acid 1 MG Tab PO SCH (08:14)
[2018-07-12] MEDS: Magnesium Oxide 400 MG Tab PO SCH (08:14)
[2018-07-12] MEDS: Multivitamins with Iron/Calcium/Folic Acid/Minerals Tab PO SCH (08:14)
[2018-07-12] MEDS: Ferrous Sulfate 325 MG Tab PO SCH ×3 (08:14→19:36)
[2018-07-12] MEDS: amLODIPine 10 MG Tab PO SCH (19:35)
[2018-07-13] MEDS: Acetaminophen 325 MG Tab PO SCH ×2 (05:00→11:22)
[2018-07-13] MEDS: Ferrous Sulfate 325 MG Tab PO SCH ×2 (08:04→11:22)
[2018-07-13] MEDS: Hydrochlorothiazide 25 MG Tab PO SCH (08:04)
[2018-07-13] MEDS: Folic Acid 1 MG Tab PO SCH (08:04)
[2018-07-13] MEDS: Multivitamins with Iron/Calcium/Folic Acid/Minerals Tab PO SCH (08:04)
[2018-07-13] MEDS: Magnesium Oxide 400 MG Tab PO SCH (08:04)
[2018-07-13] MEDS: Aspirin 325 MG Tab.EC PO SCH (08:04)
[2018-07-13] MEDS: Cyanocobalamin (Vitamin B12) 1,000 MCG Tab PO SCH (08:04)
[2018-07-13] MEDS: Losartan 50 MG Tab PO SCH (08:05)
[2018-07-13] MEDS: Labetalol 100 MG Tab PO SCH (08:05)
--- NOTE | 2018-07-13 11:06 | PCM.DCSUM1 ---
Discharge Summary - Hospital Course Brief History: Mr. Rosales is an 88 yo male with history of left above knee amputation who was admitted to swing bed for rehabilitation following a right total shoulder replacement. - Discharge Data Discharge Date: 07/13/18 Discharge Disposition: Home, W Home Health Agency 06 Condition: Good - Discharge Diagnosis/Problem(s) (1) Status post total replacement of right shoulder SNOMED Code(s): 573214935, 200852277 ICD Code: Z96.611 - PRESENCE OF RIGHT ARTIFICIAL SHOULDER JOINT Status: Acute Current Visit: Yes (2) S/P AKA (above knee amputation) SNOMED Code(s): 742233421, 37591023, 678606871 ICD Code: Z89.619 - ACQUIRED ABSENCE OF UNSPECIFIED LEG ABOVE KNEE Status: Chronic Current Visit: Yes Qualifiers: Laterality: left Qualified Code(s): Z89.612 - Acquired absence of left leg above knee (3) Dyspnea on exertion SNOMED Code(s): 91044687 ICD Code: R06.09 - OTHER FORMS OF DYSPNEA Status: Chronic Current Visit: Yes (4) Phantom limb pain SNOMED Code(s): 5841740117013 ICD Code: G54.6 - PHANTOM LIMB SYNDROME WITH PAIN Status: Chronic Current Visit: Yes (5) Hypertension SNOMED Code(s): 72609419 ICD Code: I10 - ESSENTIAL (PRIMARY) HYPERTENSION Status: Chronic Current Visit: Yes Qualifiers: Hypertension type: essential hypertension Qualified Code(s): I10 - Essential (primary) hypertension (6) CKD (chronic kidney disease) SNOMED Code(s): 655501674 ICD Code: N18.9 - CHRONIC KIDNEY DISEASE, UNSPECIFIED Status: Chronic Current Visit: Yes Qualifiers: Chronic kidney disease stage: stage 3 (moderate) Qualified Code(s): N18.3 - Chronic kidney disease, stage 3 (moderate) (7) Aortic stenosis SNOMED Code(s): 16246971 ICD Code: I35.0 - NONRHEUMATIC AORTIC (VALVE) STENOSIS Status: Chronic Current Visit: Yes Qualifiers: Cardiac valve disease etiology: nonrheumatic Qualified Code(s): I35.0 - Nonrheumatic aortic (valve) stenosis (8) Atrial fibrillation SNOMED Code(s): 06160959 ICD Code: I48.91 - UNSPECIFIED ATRIAL FIBRILLATION Status: Chronic Current Visit: Yes Qualifiers: Atrial fibrillation type: paroxysmal Qualified Code(s): I48.0 - Paroxysmal atrial fibrillation - Patient Summary/Data Operative Procedure(s) Performed: none Complications: none Consults: Consultations 07/10/18 13:00 OT Evaluation and Treatment [CONS] Routine PT Evaluation and Treatment [CONS] Routine Labs Pending at D/C: none Recommended Follow-up Testing/Procedures: PFT, stress test Planned Operative Procedure(s) after DC: none Hospital Course: The patient was admitted and worked with PT and OT. His medications were continued as per his hospital discharge summary. He progressed well with therapies and is felt prepared for dismissal home today with continued therapies through home health. His hospitalization in [place] was complicated by acute on chronic dyspnea on exertion that responded well to 1 dose of IV lasix. However, it is recommended he undergo a PFT as well as possible a stress test to complete the work-up of this. His hospitalization in [place] was uncomplicated. He is encouraged to follow up with his PCP in about 1 week. [id number] Documentation: Patient seen today for [id number] visit for same reason that he will need home health, which is a right total shoulder replacement in the setting of a previous left AKA. He should have PT and OT for strengthening/rehab as well as fci for assessment/medication management. He is homebound as he needs the assistance of another individual to leave the home. His home health plan of care can be followed by me or by his PCP at the [facility]. - Patient Instructions Diet: Usual Diet as Tolerated Activity: As Tolerated Driving: Do Not Drive Notify Provider of: Fever, Increased Pain, Swelling and Redness, Drainage - Discharge Plan *PRESCRIPTION DRUG MONITORING PROGRAM REVIEWED*: No *COPY OF PRESCRIPTION DRUG MONITORING REPORT IN PATIENT KALPESH: No Home Medications: Home Meds Acetaminophen 650 mg PO Q6H 07/08/18 [History] Aspirin [Aspirin EC] 325 mg PO DAILY 07/08/18 [History] Labetalol [Normodyne] 100 mg PO BID 07/08/18 [History] Losartan [Cozaar] 50 mg PO DAILY 07/08/18 [History] Sennosides/Docusate Sodium [Senna-Docusate Sodium Tablet] 1 each PO BID [History] amLODIPine Besylate [Amlodipine Besylate] 10 mg PO DAILY 07/08/18 [History] hydroCHLOROthiazide [Hydrochlorothiazide] 25 mg PO DAILY 07/08/18 [History] Cyanocobalamin (Vitamin B-12) [B-12] 1,000 mcg PO DAILY 07/10/18 [History] Ferrous Sulfate 325 mg PO TID 07/10/18 [History] Folic Acid 1 mg PO DAILY 07/10/18 [History] Gabapentin [Neurontin] 100 mg PO BID PRN 07/10/18 [History] Magnesium Amino Acid Chelate [Magnesium] 100 mg PO DAILY 07/10/18 [History] Multivitamin [Multi-Vitamin Daily] 1 each PO DAILY 07/10/18 [History] - Discharge Summary/Plan Comment DC Time >30 min.: No - General Info Date of Service: 07/13/18 Subjective Update: Patient is doing well. He is looking forward to discharge home today. He denies any pain. The swelling in his arm has gone down significantly. No numbness or tingling in the right hand apart from what is chronic for him due to carpal tunnel. No fever. He denies any other symptoms and feels comfortable with discharge home today. - Review of Systems General: Reports: No Symptoms HEENT: Reports: No Symptoms Pulmonary: Reports: No Symptoms Cardiovascular: Reports: No Symptoms Gastrointestinal: Reports: No Symptoms Genitourinary: Reports: No Symptoms Musculoskeletal: Reports: No Symptoms Skin: Reports: No Symptoms - Patient Data Vitals - Most Recent: Last Vital Signs Temp 36.3 C 07/13/18 06:00 Pulse 75 07/13/18 08:05 Resp 20 07/12/18 06:00 BP 135/73 07/13/18 08:05 Pulse Ox 97 07/13/18 06:00 Weight - Most Recent: 72.745 kg I&O - Last 24 hours: Intake & Output 07/12/18 07/13/18 07/13/18 22:59 06:59 14:59 Intake Total 420 Output Total 200 Balance -200 420 Med Orders - Current: Current Medications Acetaminophen (Tylenol) [address] [facility] Last Admin: 07/13/18 05:00 Dose: Not Given Amlodipine Besylate (Norvasc) [address] [facility] Last Admin: 07/12/18 19:35 Dose: 10 mg Aspirin (Ecotrin) [address] [facility] Last Admin: 07/13/18 08:04 Dose: 325 mg Cyanocobalamin (Vitamin B12) 1,[address] [facility] Last Admin: 07/13/18 08:04 Dose: 1,000 mcg Ferrous Sulfate (Ferrous Sulfate) [address] [facility] Last Admin: 07/13/18 08:04 Dose: 325 mg Folic Acid (Folic Acid) [address] [facility] Last Admin: 07/13/18 08:04 Dose: 1 mg Gabapentin (Neurontin) 100 mg PO BID PRN PRN Reason: Phantom limb pain Hydrochlorothiazide (Hydrochlorothiazide) [address] [facility] Last Admin: 07/13/18 08:04 Dose: 25 mg Labetalol HCl (Normodyne) [address] [facility] Last Admin: 07/13/18 08:05 Dose: 100 mg Losartan Potassium (Cozaar) [address] [facility] Last Admin: 07/13/18 08:05 Dose: 50 mg Magnesium Oxide (Magnesium Oxide) [address] [facility] Last Admin: 07/13/18 08:04 Dose: 400 mg Multivitamins/Minerals (Thera M Plus) [address] [facility] Last Admin: 07/13/18 08:04 Dose: 1 tab Senna/Docusate Sodium (Senna Plus) [address] [facility] Last Admin: 07/13/18 08:04 Dose: 1 tab - Exam General: Reports: Alert, Cooperative, No Acute Distress HEENT: Reports: Mucous Membr. Moist/[place] Neck: Reports: Supple, Trachea Midline, No Thyromegaly. Denies: Lymphadenopathy Lungs: Reports: Clear to Auscultation, Normal Respiratory Effort Cardiovascular: Reports: Regular Rate, Regular Rhythm, Murmurs GI/Abdominal Exam: Normal Bowel Sounds, Soft, Non-Tender, No Organomegaly, No Distention, No Abnormal Bruit, No Mass Extremities: Non-Tender, No Pedal Edema, Normal Capillary Refill, Other ( dressing on right shoulder c/d/i; no swelling in the right arm. Sensation and mobility in the fingers on the right hand normal.) Skin: Reports: Warm, Dry, Intact Neurological: Reports: No New Focal Deficit *Q Meaningful Use (DIS) - VTE *Q VTE Anticoagulation Contraindications: Med/TX Not Indicated/Need
== END 2018-07-13 12:00 | disposition home health service (06) | DRG 561 ==
LOC: VM.MS 07-10 13:59
PROVIDERS: ADMIT Family Medicine; ATTEND Family Medicine
DX: Z47.1 Aftercare following joint replacement surgery (principal); Z96.611 Presence of right artificial shoulder joint; R06.09 Other forms of dyspnea; G54.6 Phantom limb syndrome with pain; I12.9 Hypertensive chronic kidney disease with stage 1 through stage 4 chronic kidney disease, or unspecified chronic kidney disease; N18.3 Chronic kidney disease, stage 3 (moderate); I35.0 Nonrheumatic aortic (valve) stenosis; I48.0 Paroxysmal atrial fibrillation; Z98.49 Cataract extraction status, unspecified eye; H53.8 Other visual disturbances; D64.9 Anemia, unspecified; Z89.612 Acquired absence of left leg above knee; Z79.82 Long term (current) use of aspirin; Z90.49 Acquired absence of other specified parts of digestive tract; Z87.891 Personal history of nicotine dependence
CPT/HCPCS: 97110-GP; 97161-GP; 97165-GO; 97530-GP; 97535-GO; A9270-GY